=== PATIENT | male | born 1940 | race Caucasian/White ===

== ENCOUNTER 2019-08-14 11:08 | Inpatient (IN) | payer MEDICARE, BC ==
[~2019-08-14] VITALS: Ht 182.9 cm; Wt 73.9 kg
[2019-08-14] MEDS ORDERED: PRED20TA PO (11:40)
[2019-08-14] MEDS ORDERED: METF-839 PO (11:40)
[2019-08-14] MEDS ORDERED: SODIUM CHLORIDE 0.9% INJ 10 ML SYR IV PRN (12:00)
[2019-08-14 13:00] LABS: HEMATOCRIT 28.7 % (42.0-52.0); HEMOGLOBIN 9.4 g/dl (13.5-17.5); MEAN CORPUSCULAR HEMOGLOBIN 29.7 pg (27.0-33.0); MEAN CORPUSCULAR HGB CONC 32.8 g/dl (32.0-36.5); MEAN CORPUSCULAR VOLUME 90.5 fl (80.0-96.0); RED BLOOD COUNT 3.17 10^6/uL (4.30-6.10); WHITE BLOOD COUNT 5.1 10^3/uL (4.0-10.0)
[2019-08-14 13:02] LABS: PLATELET COUNT, AUTOMATED 88 10^3/uL (150-450)
[2019-08-14 13:17] LABS: ALBUMIN 2.7 GM/DL (3.2-5.2); ALT/SGPT 22 U/L (12-78); BILIRUBIN,DIRECT 0.2 MG/DL (0.0-0.2); BILIRUBIN,TOTAL 0.5 MG/DL (0.2-1.0); BLOOD UREA NITROGEN 21 MG/DL (7-18); CALCIUM LEVEL 8.9 MG/DL (8.8-10.2); CARBON DIOXIDE LEVEL 30 MEQ/L (21-32); CHLORIDE LEVEL 101 MEQ/L (98-107); CK-MB VALUE MASS < 1.0 NG/ML (<3.6); CPK CREATINE PHOSPHOKINASE 25 U/L (39-308); CREATININE FOR GFR 0.84 MG/DL (0.70-1.30); GLOMERULAR FILTRATION RATE > 60.0 (>42); GLUCOSE, FASTING 234 MG/DL (70-100); SODIUM LEVEL 137 MEQ/L (136-145); TROPONIN I 0.02 NG/ML (< 0.10)
[2019-08-14 13:36] LABS: LYMPHOCYTES 2 % (16-44); METAMYELOCYTES 15 % (0-0); MONOCYTES 1 % (0-5); MYELOCYTES 19 % (0-0); NEUTROPHILS 52 % (28-66)
[2019-08-14 13:37] LABS: DOHLE BODIES 1+
[2019-08-14 13:38] LABS: OVALOCYTES 2+; TEAR DROP CELLS 2+
[2019-08-14 13:39] LABS: PLATELET ESTIMATE DECREASED (NORMAL)
[2019-08-14 14:15] LABS: HEMOGLOBIN A1c 7.4 %
[2019-08-14] MEDS ORDERED: NS 1,000 ML IV ONE (14:45)
[2019-08-14] MEDS ORDERED: SUPER BETA PROSTATE PO (15:51)
[2019-08-14] MEDS ORDERED: ASPI81TA85 PO (15:51)
[2019-08-14] MEDS ORDERED: METF-791 PO (15:51)
[2019-08-14] MEDS ORDERED: HYALCAP PO (15:53)
[2019-08-14] MEDS ORDERED: DOCU-129 PO (15:53)
[2019-08-14] MEDS ORDERED: IRON65TA2 PO (15:53)
[2019-08-14] MEDS ORDERED: ACET-683 PO (15:53)
[2019-08-14] MEDS ORDERED: GLUCOSE 4 GM CHEW TABLET PO PRN (17:15)
[2019-08-14] MEDS ORDERED: GLUCAGON FOR INJ 1 MG VIAL (J1610) SC PRN (17:15)
[2019-08-14] MEDS ORDERED: DEXTROSE 50% 50 ML SYRINGE IV PRN (17:15)
--- NOTE | 2019-08-14 17:51 | HPE ---
DATE OF ADMISSION: 08/14/2019 at approximately 5 p.m. CHIEF COMPLAINT: Generalized weakness. HISTORY OF PRESENT ILLNESS: Mr. Daugherty is a 79-year-old gentleman who has history of non-Hodgkin lymphoma. He completed six cycles of chemotherapy approximately 4 weeks ago in June. He is originally from this area but has been living in [place], [place], since 2004. He returned to the area recently to visit family. He presents to the hospital with generalized weakness that has been going on for several days. The patient in the emergency room (ER) department was found to have respiratory panel which is positive for Coronavirus. He is not having any symptoms of congestion, cough, or shortness of breath. As a byproduct of his evaluation in the emergency department (ED), he was found to have atrial flutter, which is presently rate controlled, but he states that when he walks sometimes he feels that his heart is racing. He has no previous history of atrial flutter. His past medical history includes diet-controlled hypertension and diabetes mellitus, type 2, for which he is on metformin. ALLERGIES: Shrimp and LISINOPRIL, which cause angiotensin-converting enzyme (OK) inhibitor cough. PAST MEDICAL HISTORY: 1. Diet-controlled hypertension. 2. Diabetes. 3. Non-Hodgkin lymphoma. 4. Neutropenia associated with chemotherapy. 5. Chronic anemia associated with chemotherapy. PAST SURGICAL HISTORY: 1. Exploratory laparotomy for bowel obstruction. 2. He is status post small-bowel resection. He has an Sxqlri-H-Lepj in place. 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 He does not use any alcohol, tobacco, or illicit drugs. He currently lives in [place]. He lists himself as a DO NOT RESUSCITATE with his as his surrogate medical decision maker. FAMILY HISTORY: Notable for father, who had prostate cancer. Mother of some infection that he cannot recall. REVIEW OF SYSTEMS: Patient, other than traveler from [place] to [place], lists no other recent travel, especially to [place] or [place], where current infections are going on with Coronavirus COVID-19. He is presently afebrile. He denies having any cough or any shortness of breath. He just feels fatigued. He denies having any chest discomfort. He does have some mild lower extremity swelling, about +1 in both ankles and shins. Remainder of 12-system review with patient otherwise negative. PHYSICAL EXAMINATION: Patient's temperature is 97.2, pulse is 85 and irregularly irregular, respirations are 16, blood pressure is 135/64, oxygen saturation is 98% on room air. Telemetry shows rate controlled atrial flutter. In general, the patient is alert and oriented times three. He is an elderly gentleman who appears his stated age. He appears to have a thin build associated with protein malnutrition from his chemotherapy and cancer. He reports losing greater than 50 pounds in the last year. He has temporal muscle wasting bilaterally. His head is otherwise atraumatic. His pupils are symmetric and reactive to light. He has no scleral icterus or conjunctival pallor. Oropharynx is clear without exudate, erythema, or thrush. His neck is supple. He has no thyromegaly. No thyroid gland tenderness to palpation. He has no audible stridor. No palpable lymphadenopathy. Lung sounds are appreciated bilaterally in anterior and lateral lung valentin. No audible adventitial lungs are heard. Heart is S1, S2. No audible murmurs, rubs, or gallops. He is fairly in an irregularly irregular rhythm, consistent with atrial flutter/fibrillation noted on telemetry. His abdomen is Soft, nontender, nondistended. Extremities are without any significant cyanosis or clubbing. He has 1+ edema bilaterally. Capillary refill is less than 5 seconds. No visible rashes are noted throughout his skin. He does have some areas of bruising on his upper extremities that are in different phases of healing. Nothing appears acute at this time. RELEVANT LABORATORIES: White count is 5.1, hemoglobin 9.4, hematocrit 28.7, platelet count 88,000. Sodium 137, potassium 4, chloride 101, bicarbonate 30, anion gap 6, BUN 21, creatinine 0.81, glucose 234. A1c is 7.4. Bilirubin 0.5, AST 17, ALT 22, alkaline phosphatase 57. Initial troponin is negative. Albumin is 2.7. TSH is 1.07. EKG showed atrial flutter, rate controlled. Chest x-ray has not been completed. Urinalysis was unremarkable for any acute infection. IMPRESSION: 1. Atrial flutter, which is rate controlled, new onset. 2. Generalized weakness with dehydration. 3. Diet-controlled hypertension. 4. Diabetes mellitus, type 2, non-insulin dependent. 5. Non-Hodgkin lymphoma with anemia and thrombocytopenia associated with chemotherapy. 6. Coronavirus infection picked up on respiratory panel. PLAN: Patient will be admitted to an inpatient status to the progressive care unit (PCU). He will be monitored on telemetry. At the present time, he is not needing any rate-controlled medications. We will monitor him and decide whether he warrants medication that will control his rate. We will obtain an echocardiogram. His thyroid-stimulating hormone (TSH) level is normal, so I suspect that likely the atrial flutter may just be age induced versus related to his chemotherapy or from the dehydration and acute infection with the Coronavirus itself. Patient will be gently hydrated. We will repeat his labs i the morning. We will assess his left ventricular (LV) function with an echocardiogram in the morning and will decide on anticoagulation based on his CHADs2 score and repeat labs. At present moment, patient is thrombocytopenic and is a month out from his most recent chemotherapy. We will make sure his platelets are stable before starting any anticoagulation. Patient will be placed on sliding scale for treatment of his diabetes. Because he is not eating well, I am just going to put him on a regular diet. We will have utilization review coordinator also see him, as he has had considerable weight loss associated with this moderate to severe protein calorie malnutrition. Patient will be placed in respiratory isolation given his positive respiratory viral panel. Further recommendations to follow. Patient will be a DO NOT RESUSCITATE. Due to his thrombocytopenia he is not a candidate for chemo prophylaxis. He will be placed on sequential compression devices (SCDs) only.
[2019-08-14] MEDS: HumaLOG INSULIN (NovoLOG) PER UNIT SC SCH (17:58)
[2019-08-14] MEDS: LR 1,000 ML IV SCH (17:59)
[2019-08-14 18:31] LABS: CK-MB VALUE MASS < 1.0 NG/ML (<3.6); CPK CREATINE PHOSPHOKINASE 21 U/L (39-308); MB/CK RELATIVE INDEX 4.76 (< OR =4); TROPONIN I 0.02 NG/ML (< 0.10)
[2019-08-14] MEDS: ACETAMINOPHEN TAB 650MG DOSE (2X325MG) PO PRN (19:45)
[2019-08-14] MEDS ORDERED: HumaLOG INSULIN (NovoLOG) PER UNIT SC SCH (21:00)
--- NOTE | 2019-08-14 22:09 | IPNPDOC ---
Text Note Date of Service The patient was seen on 08/14/19. NOTE time of service 1005pm The pt is c/o of tail bone pain. He has some redness on his gluteal area. # Sacral Pressure Ulcer - will order air matress and ask RN to help w frequent repositioning. VS,Fishbone, I+O VS, Fishbone, I+O Laboratory Tests 08/14/19 12:31 Vital Signs Date Time Temp Pulse Resp B/P (MAP) Pulse Ox O2 Delivery O2 Flow Rate FiO2 08/14/19 21:49 107 96 08/14/19 21:34 17 Room Air 08/14/19 19:29 156/69 (98) 08/14/19 16:49 97.2 PB STEELE MD Aug 14, 2019 22:09
--- NOTE | 2019-08-14 23:10 | ECGEPIP ---
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
[2019-08-15] MEDS: BENZONATATE 100 MG CAP PO SCH ×2 (00:21→08:00)
[2019-08-15 02:02] LABS: CK-MB VALUE MASS < 1.0 NG/ML (<3.6); CPK CREATINE PHOSPHOKINASE 20 U/L (39-308); TROPONIN I 0.04 NG/ML (< 0.10)
[2019-08-15] MEDS ORDERED: BENZONATATE 100 MG CAP PO PRN (05:45)
[2019-08-15] MEDS: LR 1,000 ML IV SCH (05:57)
[2019-08-15 06:00] VITALS: BP 124/68
[2019-08-15 06:17] LABS: ALBUMIN 2.5 GM/DL (3.2-5.2); ALT/SGPT 20 U/L (12-78); BILIRUBIN,TOTAL 0.5 MG/DL (0.2-1.0); BLOOD UREA NITROGEN 14 MG/DL (7-18); CALCIUM LEVEL 8.3 MG/DL (8.8-10.2); CARBON DIOXIDE LEVEL 29 MEQ/L (21-32); CHLORIDE LEVEL 102 MEQ/L (98-107); CREATININE FOR GFR 0.83 MG/DL (0.70-1.30); GLOMERULAR FILTRATION RATE > 60.0 (>42); GLUCOSE, FASTING 204 MG/DL (70-100); POTASSIUM SERUM 3.8 MEQ/L (3.5-5.1); SODIUM LEVEL 137 MEQ/L (136-145); TOTAL PROTEIN 4.9 GM/DL (6.4-8.2)
[2019-08-15] MEDS: ACETAMINOPHEN TAB 650MG DOSE (2X325MG) PO PRN (07:37)
[2019-08-15 08:00] VITALS: BP 116/56
[2019-08-15 08:58] LABS: HEMATOCRIT 26.2 % (42.0-52.0); HEMOGLOBIN 8.4 g/dl (13.5-17.5); MEAN CORPUSCULAR HEMOGLOBIN 29.2 pg (27.0-33.0); MEAN CORPUSCULAR HGB CONC 32.1 g/dl (32.0-36.5); RED BLOOD COUNT 2.88 10^6/uL (4.30-6.10); WHITE BLOOD COUNT 2.7 10^3/uL (4.0-10.0)
[2019-08-15 08:59] LABS: PLATELET COUNT, AUTOMATED 76 10^3/uL (150-450)
[2019-08-15] MEDS: HumaLOG INSULIN (NovoLOG) PER UNIT SC SCH ×2 (09:03→12:56)
[2019-08-15 09:23] LABS: ATYPICAL LYMPH 1 % (0-5); LYMPHOCYTES 2 % (16-44); METAMYELOCYTES 11 % (0-0); MYELOCYTES 15 % (0-0); NEUTROPHILS 54 % (28-66)
[2019-08-15 09:24] LABS: ANISOCYTOSIS 2+; OVALOCYTES 1+; PLATELET ESTIMATE DECREASED (NORMAL); TEAR DROP CELLS 1+
[2019-08-15 09:35] LABS: CK-MB VALUE MASS < 1.0 NG/ML (<3.6); CPK CREATINE PHOSPHOKINASE 16 U/L (39-308); MB/CK RELATIVE INDEX 6.25 (< OR =4); TROPONIN I 0.03 NG/ML (< 0.10)
[2019-08-15 12:00] VITALS: BP 127/59
[2019-08-15] MEDS ORDERED: traMADol 50 MG TAB PO PRN (13:00)
[2019-08-15] MEDS ORDERED: ELIQ5TAB PO (14:33)
--- NOTE | 2019-08-15 14:38 | IPNPDOC ---
Subjective Date Seen The patient was seen on 08/15/19. Subjective Chief Complaint/HPI Feels better this morning. Walked the halls w/o any associated RVR. Echo completed this am, but results are not available. cough. Objective Physical Examination General Exam: Positive: Alert, No Acute Distress Eye Exam: Negative: Sclera icteric ENT Exam: Positive: Atraumatic, Mucous membr. moist/pink Neck Exam: Positive: Supple Chest Exam: Positive: Clear to auscultation Telemetry: Positive: Other Telemetry: (a flutter rate controlled) Abdomen Exam: Positive: Normal bowel sounds Extremity Exam: Positive: Clubbing; Negative: Cyanosis, Edema Neuro Exam: Positive: Normal Gait Assessment /Plan Assessment 1. Atrial flutter, which is rate controlled, new onset. 2. Generalized weakness with dehydration. 3. Diet-controlled hypertension. 4. Diabetes mellitus, type 2, non-insulin dependent. 5. Non-Hodgkin lymphoma with anemia and thrombocytopenia associated with chemotherapy. 6. Upper respiratory infection with Coronavirus (usual strains) Plan: - eliquis 5 mg bid - I will notify him of results of ECHO when the results are back - F/u with PCP + Oncologist in 1 week Plan/VTE VTE Prophylaxis Ordered?: No VTE Exclusion Mechanical Proph: N/A:VTE Prophy Ordered VTE Exclusion Pharmacological: Thrombocytopenia VS, I&O, 24H, Fishbone Vital Signs/I&O Vital Signs Date Time Temp Pulse Resp B/P (MAP) Pulse Ox O2 Delivery O2 Flow Rate FiO2 08/15/19 12:00 97.4 85 18 127/59 (81) 97 Room Air I&O- Last 24 Hours up to 6 AM 08/15/19 06:00 Intake Total 1800 ml Output Total 0 ml Balance 1800 ml Laboratory Data 24H LABS Laboratory Tests 2 08/14/19 17:53: Bedside Glucose (Misc Panel) 128H 08/14/19 17:56: Total Creatine Kinase 21L, Creatine Kinase MB < 1.0, Creatine Kinase MB Relative Index 4.76H, Troponin I 0.02 08/14/19 21:00: Bedside Glucose (Misc Panel) 234H 08/15/19 00:55: Total Creatine Kinase 20L, Creatine Kinase MB < 1.0, Creatine Kinase MB Relative Index 5.00H, Troponin I 0.04# 08/15/19 05:28: Anion Gap 6L, Glomerular Filtration Rate > 60.0, Calcium Level 8.3L, Total Bilirubin 0.5, Aspartate Amino Transf (AST/SGOT) 12, Alanine Aminotransferase (ALT/SGPT) 20, Alkaline Phosphatase 57, Total Protein 4.9L, Albumin 2.5L, Albumin/Globulin Ratio 1.04 08/15/19 08:36: Immature Granulocyte % (Auto) , Neutrophils (%) (Auto) , Lymphocytes # (Auto) , Nucleated Red Blood Cells % (auto) 0.0, Neutrophils 54, Band Neutrophils 17H, Lymphocytes (Manual) 2L, Metamyelocytes 11H, Myelocytes 15H, Atypical Lymphocytes 1, Anisocytosis 2+, Tear Drop Cells 1+, Ovalocytes 1+, Platelet Estimate DECREASED, Total Creatine Kinase 16L, Creatine Kinase MB < 1.0, Creatine Kinase MB Relative Index 6.25H, Troponin I 0.03# 08/15/19 12:40: Bedside Glucose (Misc Panel) 246H CBC/BMP Laboratory Tests 08/15/19 05:28 08/15/19 08:36 Microbiology Microbiology 08/14/19 Respiratory Virus Panel (PCR) ([facility]) - Final, Complete Coronavirus Hku1 Coronavirus [id number] PARUL LORD MD Aug 15, 2019 14:38
[2019-08-15] MEDS ORDERED: TRAM50TA2 PO (17:43)
--- NOTE | 2019-08-15 21:36 | ECHO ---
DATE OF PROCEDURE: 08/15/2019 Date of : 1940 Age: 79 REFERRING PHYSICIAN: Dr. Andrey Matos REASON FOR ECHOCARDIOGRAM: Dysrhythmia. 2D MEASUREMENTS: IVS: 0.8 cm LV: 4.5 cm LVPW: 1.0 cm LA: 3.8 cm Aorta: 3.1 cm RV: 2.8 cm DOPPLER MEASUREMENTS: Mitral E: 0.7, Mitral A: 0.5 with a ratio of 1.5 Maximum tricuspid valve velocity: 2.4 m/s 2D COMMENTS: 1. Technically limited study due to poor acoustic window. 2. The left ventricular size is normal as well as the left ventricular wall thickness. Left ventricular systolic function also is normal, estimated at 55-60%. 3. Subjectively, the left atrium appeared to be mildly enlarged. Normal right atrium and right ventricle. 4. The atrial septum appeared to be normal without evidence of defect or shunt. 5. Normal aortic root. 6. No pericardial effusion seen. 7. Mildly calcified aortic valve with normal leaflet excursion. Mildly calcified mitral annulus with normal anterior mitral valve leaflet motion. Normal tricuspid valve and pulmonic valve. The proximal pulmonary artery branches were not well visualized. 8. The inferior vena cava was not visualized. DOPPLER: Doppler detects mild to moderate aortic regurgitation, mild mitral regurgitation, and trace tricuspid regurgitation. The calculated pulmonary artery systolic pressure is about 30 mmHg. Assessment of the left ventricular diastolic function was limited but appeared to be normal. IMPRESSION 1. Normal global left ventricular systolic and diastolic function. 2. Aortic valve sclerosis with [id number] aortic regurgitation. 3. Mitral annulus calcification with mild mitral regurgitation. Subjectively, the left atrium appeared to be mildly enlarged. 4. Trace tricuspid regurgitation. 5. The study was technically limited due to poor acoustic window. [facility]
[2019-08-16] MEDS ORDERED: TRAM50TA2 PO (15:10)
[2019-08-16] MEDS ORDERED: ELIQ5TAB PO (15:10)
--- NOTE | 2019-08-17 21:02 | DSES ---
DATE OF ADMISSION: 08/14/2019 DATE OF DISCHARGE: 08/15/2019 DISCHARGE DIAGNOSES: 1. Atrial flutter, rate controlled, this is of new onset. 2. Generalized weakness secondary to dehydration. 3. Diet controlled hypertension. 4. Non-insulin dependent diabetes mellitus type 2. 5. Non-Hodgkin lymphoma with pancytopenia associated with chemotherapy. 6. Upper respiratory infection with coronavirus routine strains. PROCEDURES PERFORMED: During this hospitalization: None. CONSULTATIONS: On this case: None. DISPOSITION: Patient is being discharged home in stable condition. FOLLOWUP LABORATORIES: None. DISCHARGE INSTRUCTIONS: Patient was instructed to take Eliquis 5 mg twice a day. He is to monitor for any blood in his stool, urine, hematemesis, or evidence of easy bruising. He is to followup with his primary care provider (PCP) as well as oncologist upon return to [place] where he lives. CONDITION ON DISCHARGE: Improved from admission. RELEVANT LABORATORIES: Are the following: White blood cell count on admission was 5.1, had decreased to 2.7, hemoglobin 8.4, hematocrit 26.2, platelet counts are 88,000. Sodium 137, potassium 3.8, chloride 102, bicarbonate 29, BUN 14, creatinine 0.83, glucose 204, hemoglobin A1c 7.4, AST 12, ALT 20, alkaline phosphatase 57, troponin markers times three were normal, TSH 1.07. Urinalysis was otherwise unremarkable showing 2+ glucose and trace ketonuria. Respiratory viral panel was positive for coronavirus HKU1 and NL63. IMAGING STUDIES: Obtained during the patient's hospital stay was a CT scan of his head which was unremarkable for any acute pathology and a chest x-ray which showed no acute pulmonary disease. DISCHARGE MEDICATIONS: Are the following: - Tylenol 1000 mg every 6 hours as needed for pain - ferrous sulfate 325 mg daily - hyaluronic acid three capsules daily - metformin 500 mg by mouth daily - prednisone 20 mg daily as needed - Colace 200 mg twice a day as needed for constipation - Eliquis 5 mg by mouth twice a day - tramadol 50 mg by mouth every 6 hours as needed for pain HOSPITAL COURSE: Mr. Daugherty is a 79-year-old gentleman who had presented to the hospital with generalized weakness. He was found to be in atrial flutter which was a new diagnosis for him with heart rates in the low 100s, in addition he was found to be dehydrated. He was admitted to the hospitalist service, hydrated with IV fluids with improvement in his dehydration. His atrial flutter settled down and he did not necessitate any rate controlling medications. On the following day, the patient was seen by physical therapy (PT), he was up and walking in the halls without difficulty, he was not complaining of any weakness and stated that he felt quite well. He was eager to be discharged. An echocardiogram obtained during this hospitalization showed a normal left ventricular ejection fraction without any significant valvular pathology. The patient was started on Eliquis 5 mg twice a day and also prescribed tramadol and discharged home in stable condition. A total of 30 minutes was spent completing all discharge paperwork.
== END 2019-08-15 15:43 | disposition home or self-care (01) | DRG 308 ==
LOC: M ED 11:08 → M ED INP 17:03 → ENRESERV 08-15 04:22 → M PCU 08-15 04:50
PROVIDERS: ADMIT Internal Medicine; ATTEND Internal Medicine
DX: I48.92 Unspecified atrial flutter (principal); D61.810 Antineoplastic chemotherapy induced pancytopenia; E43 Unspecified severe protein-calorie malnutrition; Z92.21 Personal history of antineoplastic chemotherapy; I10 Essential (primary) hypertension; E11.9 Type 2 diabetes mellitus without complications; Z79.84 Long term (current) use of oral hypoglycemic drugs; Z91.013 Allergy to seafood; Z88.8 Allergy status to other drugs, medicaments and biological substances; Z66 Do not resuscitate; E86.0 Dehydration; B97.29 Other coronavirus as the cause of diseases classified elsewhere; R53.1 Weakness; Z85.72 Personal history of non-Hodgkin lymphomas; L89.159 Pressure ulcer of sacral region, unspecified stage; Z79.899 Other long term (current) drug therapy

== ENCOUNTER 2019-08-16 11:26 | Inpatient (IN) | payer MEDICARE, BC ==
[~2019-08-16] VITALS: Ht 188 cm; Wt 74.7 kg
[~2019-08-16 11:26] MED LIST: ACET-683 PO; ASPI81TA85 PO; DOCU-129 PO; ELIQ5TAB PO; HYALCAP PO; IRON65TA2 PO; METF-791 PO; METF-839 PO; PRED20TA PO; SODIUM CHLORIDE 0.9% INJ 10 ML SYR IV SCH; SUPER BETA PROSTATE PO; TRAM50TA2 PO
[2019-08-16 13:16] LABS: VENOUS BASE EXCESS 3.2 (-2.0-2.0); VENOUS O2 SATURATION 84.1 % (60.0-80.0); VENOUS PARTIAL PRESSURE CO2 38.1 mmHg (38.0-50.0); VENOUS PARTIAL PRESSURE O2 49.5 mmHg (30.0-50.0); VENOUS PH 7.469 UNITS (7.330-7.430); VENOUS STANDARD HCO3 27.1 MEQ/L; VENOUS TOTAL CO2 28.2 MEQ/L (24.0-28.0)
[2019-08-16 13:21] LABS: HEMATOCRIT 27.8 % (42.0-52.0); HEMOGLOBIN 8.9 g/dl (13.5-17.5); MEAN CORPUSCULAR HEMOGLOBIN 29.1 pg (27.0-33.0); MEAN CORPUSCULAR VOLUME 90.8 fl (80.0-96.0); RED BLOOD COUNT 3.06 10^6/uL (4.30-6.10)
[2019-08-16 13:22] LABS: PLATELET COUNT, AUTOMATED 88 10^3/uL (150-450); WHITE BLOOD COUNT 1.4 10^3/uL (4.0-10.0)
[2019-08-16 13:51] LABS: EOSINOPHILS 1 % (0-3); LYMPHOCYTES 1 % (16-44); METAMYELOCYTES 4 % (0-0); MONOCYTES 4 % (0-5); NEUTROPHILS 73 % (28-66); PLATELET ESTIMATE DECREASED (NORMAL)
[2019-08-16 13:52] LABS: OVALOCYTES 1+; POIKILOCYTOSIS 1+
--- NOTE | 2019-08-16 13:53 | REP ---
CT BRAIN WITHOUT IV CONTRAST: CT brain performed without IV contrast. Coronal reconstruction images are performed. There is moderate atrophy. There is no midline shift or mass effect. Minor periventricular small vessel ischemic changes are present. There is no intracranial hemorrhage or extra-axial fluid collection. There are minor vascular calcifications in the carotid siphons. There is mild mucosal thickening in the posterior left maxillary sinus and posterior right sphenoid sinus. IMPRESSION: Atrophy. No acute intracranial finding. Mild mucosal thickening left maxillary and right sphenoid sinuses. Electronically Signed by Brain Barriga MD 08/16/2019 06:49 P
--- NOTE | 2019-08-16 13:54 | REP ---
CHEST, AP: AP sitting views of the chest are performed. There appears to be some mild fibroatelectasis in the left base with no acute infiltrate. There is mild elevation of the left hemidiaphragm. The heart is normal in size. Mediastinal silhouette is unremarkable. Right central venous catheter is seen with the tip in the right atrium. There are mild degenerative changes of the spine. IMPRESSION: No evidence of acute pulmonary disease. Electronically Signed by Brain Barriga MD 08/16/2019 06:49 P
[2019-08-16 14:15] LABS: ALBUMIN 2.5 GM/DL (3.2-5.2); ALT/SGPT 23 U/L (12-78); BILIRUBIN,DIRECT 0.2 MG/DL (0.0-0.2); BILIRUBIN,TOTAL 0.5 MG/DL (0.2-1.0); BLOOD UREA NITROGEN 16 MG/DL (7-18); CALCIUM LEVEL 8.3 MG/DL (8.8-10.2); CARBON DIOXIDE LEVEL 27 MEQ/L (21-32); CHLORIDE LEVEL 101 MEQ/L (98-107); CK-MB VALUE MASS < 1.0 NG/ML (<3.6); CPK CREATINE PHOSPHOKINASE 18 U/L (39-308); CREATININE FOR GFR 0.88 MG/DL (0.70-1.30); GLOMERULAR FILTRATION RATE > 60.0 (>42); GLUCOSE, FASTING 251 MG/DL (70-100); MB/CK RELATIVE INDEX 5.56 (< OR =4); POTASSIUM SERUM 4.1 MEQ/L (3.5-5.1); SODIUM LEVEL 135 MEQ/L (136-145); TROPONIN I 0.04 NG/ML (< 0.10)
[2019-08-16] MEDS ORDERED: TRAM50TA2 PO (15:10)
[2019-08-16] MEDS ORDERED: ELIQ5TAB PO (15:10)
[2019-08-16] MEDS ORDERED: guaiFENesin/CODEINE SYRUP 5 ML UDC PO PRN (15:15)
[2019-08-16 17:05] VITALS: BP 130/62
[2019-08-16] MEDS: FERROUS SULFATE 325MG TAB PO SCH (17:51)
[2019-08-16] MEDS: metFORMIN XR 500MG TAB *GLUCOPHAGE XR PO SCH (17:51)
[2019-08-16] MEDS: FILGRASTIM 480 MCG/0.8 ML SYRINGE (J1442) SC SCH (17:51)
[2019-08-16 20:00] VITALS: BP 129/61
[2019-08-16] MEDS: APIXABAN 5 MG TAB (ELIQUIS) PO SCH (20:12)
[2019-08-16] MEDS: traMADol 50 MG TAB PO PRN (20:14)
[2019-08-17] VITALS: BP 154/71
[2019-08-17 05:16] LABS: HEMATOCRIT 26.9 % (42.0-52.0); HEMOGLOBIN 8.5 g/dl (13.5-17.5); MEAN CORPUSCULAR HEMOGLOBIN 28.8 pg (27.0-33.0); MEAN CORPUSCULAR HGB CONC 31.6 g/dl (32.0-36.5); MEAN CORPUSCULAR VOLUME 91.2 fl (80.0-96.0); RED BLOOD COUNT 2.95 10^6/uL (4.30-6.10)
[2019-08-17 05:36] LABS: ALBUMIN 2.2 GM/DL (3.2-5.2); ALT/SGPT 20 U/L (12-78); BILIRUBIN,TOTAL 0.4 MG/DL (0.2-1.0); BLOOD UREA NITROGEN 14 MG/DL (7-18); CALCIUM LEVEL 8.5 MG/DL (8.8-10.2); CARBON DIOXIDE LEVEL 27 MEQ/L (21-32); CHLORIDE LEVEL 101 MEQ/L (98-107); CREATININE FOR GFR 0.86 MG/DL (0.70-1.30); GLOMERULAR FILTRATION RATE > 60.0 (>42); GLUCOSE, FASTING 169 MG/DL (70-100); POTASSIUM SERUM 3.9 MEQ/L (3.5-5.1); SODIUM LEVEL 134 MEQ/L (136-145); TOTAL PROTEIN 5.2 GM/DL (6.4-8.2)
[2019-08-17 05:37] LABS: PLATELET COUNT, AUTOMATED 87 10^3/uL (150-450); WHITE BLOOD COUNT 1.6 10^3/uL (4.0-10.0)
[2019-08-17 07:43] VITALS: BP 141/73
[2019-08-17] MEDS: FILGRASTIM 480 MCG/0.8 ML SYRINGE (J1442) SC SCH (08:14)
[2019-08-17] MEDS: metFORMIN XR 500MG TAB *GLUCOPHAGE XR PO SCH ×2 (08:14→17:38)
[2019-08-17] MEDS: APIXABAN 5 MG TAB (ELIQUIS) PO SCH ×2 (08:14→20:17)
[2019-08-17] MEDS: FERROUS SULFATE 325MG TAB PO SCH (08:14)
[2019-08-17 11:32] VITALS: BP 124/55
--- NOTE | 2019-08-17 12:02 | HPE ---
DATE OF ADMISSION: 08/16/2019 TIME: 3:50 p.m. CHIEF COMPLAINT: Weakness. HISTORY OF PRESENT ILLNESS: Mr. Daugherty is a 79-year-old gentleman who was discharged yesterday from this hospital after presenting with dehydration and findings of new onset atrial flutter. He had subsequently been discharged home in stable condition yesterday. While at home, the patient reports that he was coughing, he was also diagnosed as having routine coronavirus upper respiratory tract infection during his stay here and was managed supportively. He went home, continued to cough throughout the night and felt quite weak and subsequently sought medical attention today in the emergency department where he was found to have a white blood cell count of 1.4, which is lower from 2.6 white blood cell count yesterday. For this reason, he is going to be admitted to the hospitalist service for supportive care. He has a history of non-Hodgkin's lymphoma and has been receiving chemotherapy. His last chemotherapy was approximately one month ago. During that time he had received Neulasta therapy. His blood counts and platelet counts are otherwise stable. He reports that he took two doses of the Eliquis without complications. ALLERGIES: 1. Shrimp. 2. LISINOPRIL. PAST MEDICAL HISTORY: Notable for: 1. Recently diagnosed atrial flutter. He is on chronic anticoagulation with Eliquis starting yesterday. 2. Diet controlled hypertension. 3. Diabetes mellitus type 2, noninsulin dependent. 4. History of non-Hodgkin lymphoma current on chemotherapy. 5. He has pancytopenia induced chemotherapy. 6. Chronic anemia associated with chemotherapy. PAST SURGICAL HISTORY: Notable for: 1. Exploratory laparotomy for bowel obstruction. 2. He has an Infusaport. 3. He has had a bowel resection. SOCIAL HISTORY: The patient currently resides in [place]. 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 He does not use any alcohol, illicit drugs or tobacco products. He is and lives with . His would be his surrogate medical decision maker. He is a do not intubate, DO NOT RESUSCITATE. FAMILY HISTORY: Notable for prostate cancer in his dad. REVIEW OF SYSTEMS: Positive for a nonproductive cough and generalized weakness. Otherwise, he denies having any earaches, sore throat, no diarrhea, no burning or itching with urination. No skin rashes or tenderness of his limbs. PHYSICAL EXAMINATION: His temperature is 99, pulse is 110. He is currently in a sinus rhythm. Respiratory rate is 17, blood pressure is 119/58, oxygen saturation is 96% on room air. General: The patient is alert and oriented times three. He appears to be weak. He does not appear acutely ill. His head is atraumatic, alopecia. Skin is warm to touch, no visible rash. Tympanic membranes are visualized bilaterally without any visible infection. Nares are patent bilaterally without any visible discharge. Oropharynx is clear, without exudate, erythema, or thrush. Oral mucosa is moist. Neck is supple. No palpable lymphadenopathy. No thyromegaly. Lung sounds are appreciated bilaterally. He has symmetric chest wall rise. No audible rales, wheeze or rhonchi. Heart is S1, S2. No audible murmurs, rubs, or gallops. Abdomen is soft, nontender, nondistended with active bowel sounds. Extremities without any cyanosis, clubbing or edema. RELEVANT LABORATORIES: White blood cell count is 1.4 with 70% neutrophils and 17% bands. His absolute ANC when calculated is around 1200. Platelet count 88,000, which is improved from yesterday and his hemoglobin was 8.9 with hematocrit 27.8. Sodium 135, potassium 4.1, chloride 101, bicarbonate 27, BUN 16, creatinine 0.88, GFR greater than 60, glucose 251, calcium is 8.3, bilirubin 0.4, AST is 14, ALT is 23, alkaline phosphatase is 59. CPK is 18. Troponin marker is 0.04. TSH is 0.87, lactic acid 1.8. Chest x-ray done in the emergency department does not show any acute infiltrates. CT scan of the head without contrast shows no acute intracranial event. HOME MEDICATIONS: Are the following: - Tylenol 1000 mg every 6 hours as needed - apixaban 5 mg twice a day - Colace 200 mg twice a day as needed for constipation - ferrous sulfate 325 mg daily - hyaluronic acid 3 capsules daily - metformin 500 mg twice a day - tramadol 50 mg every 6 hours as needed for pain - super beta prostate 1 capsule twice a day - prednisone 20 mg daily as needed for pain IMPRESSION: 1. Chemo induced pancytopenia likely causing generalized weakness. 2. Paroxysmal atrial flutter likely brought on by acute infection and dehydration from previous hospital stay. The patient is currently in sinus rhythm. 3. Chronic anticoagulation with Eliquis therapy. 4. History of non-Hodgkin's lymphoma currently on chemotherapy, last dose approximately one month ago. 5. Cvj-lmdtyem-otinfwwam diabetes mellitus type 2. 6. Moderate protein calorie malnutrition secondary to chemo and underlying lymphoma. PLAN: Patient will be admitted to an inpatient status. He will be placed on the general medical floor with telemetry. He will be continued on his Eliquis as it looks like he is tolerating this quite well. The patient will be given a dose of Neupogen and we will recheck his white blood cell count in the morning. At this point in time, there is no indication to start any antibiotics as it does not appear that he is neutropenic with ANC count of greater than 1200. The patient will be treated supportively. Will check a cortisol level just to rule out any adrenal insufficiency that is contributing to his generalized weakness given his recent chronic use of steroids as an outpatient. He is otherwise normotensive now and nothing to indicate any acute adrenal insufficiency. The patient has had blood cultures drawn in the emergency department and the results are pending at this time. He will be a DO NOT RESUSCITATE, do not intubate. He will be on Eliquis for deep vein thrombosis (DVT) prophylaxis.
--- NOTE | 2019-08-17 12:12 | IPNPDOC ---
Subjective Date Seen The patient was seen on 08/17/19. Subjective Chief Complaint/HPI c/o constipation. No new complaints. Still feels weak. Continues to have cough. Objective Physical Examination General Exam: Positive: Alert, Cooperative, No Acute Distress; Negative: Mild Distress Eye Exam: Negative: Sclera icteric Neck Exam: Positive: Supple Chest Exam: Positive: Clear to auscultation Abdomen Exam: Positive: Normal bowel sounds Extremity Exam: Negative: Edema Skin Exam: Positive: Nl turgor and temperature; Negative: Rash Psych Exam: Positive: Mental status NL, Mood NL Assessment /Plan Assessment # Generalized weakness # Pancytopenia due to chemo # [place] virus URI # Atrial flutter Plan: - continue neupogen until ANC around 5000 - if no improvement with neupogen then will consult oncology, and consider BM bx - continue eliquis (hgb + platelets stable) - robitussin ac prn for cough Plan/VTE VTE Prophylaxis Ordered?: No (eliquis) VTE Exclusion Mechanical Proph: Other VTE Exclusion Pharmacological: Other VS, I&O, 24H, Fishbone Vital Signs/I&O Vital Signs Date Time Temp Pulse Resp B/P (MAP) Pulse Ox O2 Delivery O2 Flow Rate FiO2 08/17/19 11:32 97.2 105 18 124/55 (78) 96 Room Air I&O- Last 24 Hours up to 6 AM 08/17/19 06:00 Intake Total 1290 ml Output Total 550 ml Balance 740 ml Laboratory Data 24H LABS Laboratory Tests 2 08/16/19 12:28: Bedside Glucose (Misc Panel) 223H 08/16/19 12:59: Blood Gas Bicarbonate Standard 27.1, Venous Blood pH 7.469H, Venous Blood Partial Pressure CO2 38.1, Venous Blood Partial Pressure O2 49.5, Venous Blood Total Carbon Dioxide 28.2H, Venous Blood HCO3 27.0, Venous Blood Oxygen Saturation 84.1H, Venous Blood Base Excess 3.2H, Anion Gap 7L, Glomerular Filtration Rate > 60.0, Lactic Acid Level 1.8, Calcium Level 8.3L, Total Bilirubin 0.5, Direct Bilirubin 0.2, Aspartate Amino Transf (AST/SGOT) 14, Alanine Aminotransferase (ALT/SGPT) 23, Alkaline Phosphatase 59, Ammonia < 10, Total Creatine Kinase 18L, Creatine Kinase MB < 1.0, Creatine Kinase MB Relative Index 5.56H, Troponin I 0.04#, Total Protein 5.0L, Albumin 2.5L, Albumin/Globulin Ratio 1.00, Thyroid Stimulating Hormone (TSH) 0.870 08/16/19 13:00: Immature Granulocyte % (Auto) , Neutrophils (%) (Auto) , Lymphocytes # (Auto) , Nucleated Red Blood Cells % (auto) 0.0, Neutrophils 73H, Band Neutrophils 17H, Lymphocytes (Manual) 1L, Monocytes (Manual) 4, Eosinophils (Manual) 1, Metamyelocytes 4H, Poikilocytosis 1+, Ovalocytes 1+, Platelet Estimate DECREASED, Immature Platelet Fraction 4.8 08/17/19 04:49: Anion Gap 6L, Glomerular Filtration Rate > 60.0, Calcium Level 8.5L, Total Bilirubin 0.4, Aspartate Amino Transf (AST/SGOT) 16, Alanine Aminotransferase (ALT/SGPT) 20, Alkaline Phosphatase 57, Total Protein 5.2L, Albumin 2.2L, Albumin/Globulin Ratio 0.73L, Nucleated Red Blood Cells % (auto) 0.0 CBC/BMP Laboratory Tests 08/16/19 12:59 08/16/19 13:00 08/17/19 04:49 Microbiology Microbiology 08/16/19 Blood Culture, Received Pending 08/16/19 Blood Culture, Received Pending PARUL LORD MD Aug 17, 2019 12:12
[2019-08-17 15:21] VITALS: BP 121/66
[2019-08-17 15:29] VITALS: BP 121/66
--- NOTE | 2019-08-17 20:21 | ECGEPIP ---
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
[2019-08-17] MEDS: DOCUSATE SODIUM 100 MG CAP PO PRN (20:28)
[2019-08-17 22:00] VITALS: BP 148/68
[2019-08-17] MEDS: traMADol 50 MG TAB PO PRN (23:33)
[2019-08-18 02:00] VITALS: BP 145/70
[2019-08-18 06:00] VITALS: BP 143/71
[2019-08-18 08:18] LABS: HEMATOCRIT 25.3 % (42.0-52.0); HEMOGLOBIN 8.3 g/dl (13.5-17.5); MEAN CORPUSCULAR HEMOGLOBIN 29.4 pg (27.0-33.0); MEAN CORPUSCULAR HGB CONC 32.8 g/dl (32.0-36.5); MEAN CORPUSCULAR VOLUME 89.7 fl (80.0-96.0); PLATELET COUNT, AUTOMATED 102 10^3/uL (150-450); RED BLOOD COUNT 2.82 10^6/uL (4.30-6.10)
[2019-08-18 08:25] LABS: WHITE BLOOD COUNT 1.3 10^3/uL (4.0-10.0)
[2019-08-18 10:00] VITALS: BP 119/67
[2019-08-18] MEDS: metFORMIN XR 500MG TAB *GLUCOPHAGE XR PO SCH (10:01)
[2019-08-18] MEDS: APIXABAN 5 MG TAB (ELIQUIS) PO SCH ×2 (10:02→20:28)
[2019-08-18] MEDS: FILGRASTIM 480 MCG/0.8 ML SYRINGE (J1442) SC SCH (10:02)
[2019-08-18] MEDS: FERROUS SULFATE 325MG TAB PO SCH (10:02)
[2019-08-18] MEDS: DOCUSATE SODIUM 100 MG CAP PO PRN (10:03)
[2019-08-18 10:29] LABS: ATYPICAL LYMPH 1 % (0-5); EOSINOPHILS 2 % (0-3); LYMPHOCYTES 19 % (16-44); METAMYELOCYTES 12 % (0-0); MONOCYTES 4 % (0-5); MYELOCYTES 26 % (0-0); NEUTROPHILS 32 % (28-66); PLATELET ESTIMATE DECREASED (NORMAL); TOXIC GRANULATION 2+
[2019-08-18 10:30] LABS: ANISOCYTOSIS 1+; MICROCYTOSIS 1+
--- NOTE | 2019-08-18 11:20 | IPNPDOC ---
Subjective Date Seen The patient was seen on 08/18/19. Subjective Chief Complaint/HPI non-productive cough. No sob, low-grade temp this morning at 6 am. No other complaints. Objective Physical Examination General Exam: Positive: Alert, Cooperative, No Acute Distress; Negative: Mild Distress Eye Exam: Negative: Sclera icteric Neck Exam: Positive: Supple Chest Exam: Positive: Clear to auscultation; Negative: Rales, Rhonchi, Wheezing Abdomen Exam: Positive: Normal bowel sounds Extremity Exam: Negative: Edema Skin Exam: Positive: Nl turgor and temperature; Negative: Rash Psych Exam: Positive: Mental status NL, Mood NL Assessment /Plan Assessment # Generalized weakness # Pancytopenia due to chemo # Febrile neutropenia (ANC 468) # Saldivar virus URI # Atrial flutter - currently nsr Plan: - d/w Dr. Crespo, continue Neupogen (day#3) until ANC > 1500 - start vanco + cefepime - ID consult - neutropenic precautions - neutropenic diet - continue supportive care - repeat blood cultures (draw from port) Plan/VTE VTE Prophylaxis Ordered?: No (eliquis) VTE Exclusion Mechanical Proph: Other VTE Exclusion Pharmacological: Other VS, I&O, 24H, Fishbone Vital Signs/I&O Vital Signs Date Time Temp Pulse Resp B/P (MAP) Pulse Ox O2 Delivery O2 Flow Rate FiO2 08/18/19 10:00 98.1 101 19 119/67 (84) 93 Room Air I&O- Last 24 Hours up to 6 AM 08/18/19 05:59 Intake Total 840 ml Output Total 225 ml Balance 615 ml Laboratory Data 24H LABS Laboratory Tests 2 08/18/19 07:58: Immature Granulocyte % (Auto) , Neutrophils (%) (Auto) , Neutrophils # (Auto) , Lymphocytes # (Auto) , Nucleated Red Blood Cells % (auto) 0.0, Neutrophils 32, Band Neutrophils 4, Lymphocytes (Manual) 19, Monocytes (Manual) 4, Eosinophils (Manual) 2, Metamyelocytes 12H, Myelocytes 26H, Atypical Lymphocytes 1, Anisocytosis 1+, Microcytosis 1+, Toxic Granulation 2+, Platelet Estimate DECRE ASED CBC/BMP Laboratory Tests 08/18/19 07:58 Microbiology Microbiology 08/16/19 Blood Culture - Preliminary, Resulted No growth after 24 hours . All specim... 08/16/19 Blood Culture - Preliminary, Resulted No growth after 24 hours . All specim... PARUL LORD MD Aug 18, 2019 11:20
[2019-08-18] MEDS: CEFEPIME HCL 2 GM in D5W MINI-BAG PLUS 50 ML IV SCH ×2 (11:46→19:38)
[2019-08-18] MEDS ORDERED: MAGIC MOUTHWASH SUSPENSION BTL SSP PRN (13:00)
[2019-08-18 14:00] VITALS: BP 122/60
[2019-08-18] MEDS ORDERED: DEXTROMETHORPHAN 60MG/10ML SUSP 90ML BTL(DELSYM) PO PRN (14:00)
[2019-08-18] MEDS ORDERED: VANCOMYCIN HCL 1,000 MG, VIAL MATE ADAPTER 1 EACH in D5W 250 ML IV ONE (16:00)
[2019-08-18] MEDS ORDERED: ISOVUE-370 76% 100ML VIAL (Q9967) As Ordered ONE (16:15)
[2019-08-18] MEDS ORDERED: VANCOMYCIN HCL 750 MG, VIAL MATE ADAPTER 1 EACH in D5W 250 ML IV ONE (17:00)
--- NOTE | 2019-08-18 18:02 | REPVR ---
PROCEDURE INFORMATION: Exam: CT Chest With Contrast Exam date and time: 08/18/2019 5:29 PM Age: 79 years old Clinical indication: Fever; Additional info: Neutropenic fever TECHNIQUE: Imaging protocol: Computed tomography of the chest with intravenous contrast. Radiation optimization: All CT scans at this facility use at least one of these dose optimization techniques: automated exposure control; mA and/or kV adjustment per patient size (includes targeted exams where dose is matched to clinical indication); or iterative reconstruction. Contrast material: ISOVUE 370; Contrast volume: 100 ml; Contrast route: IV; COMPARISON: CR PORTABLE CHEST X-RAY 08/16/2019 11:58 AM FINDINGS: Lungs: There is a small patchy infiltrate in the posterior segment of the right upper lobe abutting the major fissure. There are bibasilar infiltrates which may be atelectatic although infection is not excluded, particularly on the left where air bronchograms are demonstrated. Pleural space: Unremarkable. No pneumothorax. No pleural effusion. Heart: There is mild atherosclerotic calcification of the coronary arteries. Aorta: The aorta demonstrates mild atherosclerotic calcification. Lymph nodes: Unremarkable. No enlarged lymph nodes. Bones/joints: The spine demonstrates mild degenerative changes. Soft tissues: Unremarkable. IMPRESSION: 1. There is a small patchy infiltrate in the posterior segment of the right upper lobe abutting the major fissure. 2. There are bibasilar infiltrates which may be atelectatic although infection is not excluded, particularly on the left where air bronchograms are demonstrated. 3. Coronary artery disease. Electronically signed by: Elvis Armenta On 08/18/2019 18:02:24 PM
--- NOTE | 2019-08-18 18:13 | REPVR ---
PROCEDURE INFORMATION: Exam: CT Abdomen And Pelvis With Contrast Exam date and time: 08/18/2019 5:29 PM Age: 79 years old Clinical indication: Fever; Additional info: Neutropenic fever TECHNIQUE: Imaging protocol: Computed tomography of the abdomen and pelvis with intravenous contrast. Radiation optimization: All CT scans at this facility use at least one of these dose optimization techniques: automated exposure control; mA and/or kV adjustment per patient size (includes targeted exams where dose is matched to clinical indication); or iterative reconstruction. Contrast material: ISOVUE 370; Contrast volume: 100 ml; Contrast route: IV; COMPARISON: No relevant prior studies available. FINDINGS: Liver: There is a diffuse decrease in hepatic parenchymal density, consistent with steatosis. Gallbladder and bile ducts: There is mild thickening of the gallbladder wall without evidence of calculi or pericholecystic fluid. Ultrasound correlation suggested for further evaluation if clinically desired. Pancreas: There is a lobular mass in the central mesentery below the level of the pancreas measuring 5.7 x 7.4 x 4.6 cm. The mass contains mixed cystic and solid components with foci of calcification. Surgical clips are demonstrated within the lesion as well. Differential diagnosis includes a carcinoid tumor, desmoplastic tumor and lymphoma. Spleen: Normal. No splenomegaly. Adrenals: Normal. No mass. Kidneys and ureters: Normal. No hydronephrosis. Stomach and bowel: Moderate diverticulosis is present in the distal colon. Minimal pericolonic inflammation demonstrated at the junction of the sigmoid and left colon, findings which may reflect changes related to prior bouts of diverticulitis or mild acute/subacute diverticulitis in the appropriate clinical setting. Appendix: No evidence of appendicitis. Intraperitoneal space: Unremarkable. No free air. No significant fluid collection. Vasculature: The aorta demonstrates mild atherosclerotic calcification. Lymph nodes: See Pancreas Finding. Bladder: Unremarkable as visualized. Reproductive: The prostate gland demonstrates mild hyperplasia. Bones/joints: The spine demonstrates moderate degenerative changes. There is a [id number] central spinal stenosis at L2-L3, moderate to severe central spinal stenosis at L3-L4 and L4-L5. There is a grade 2 anterior spondylolisthesis of L5 on S1 secondary to bilateral L5 spondylolysis. Soft tissues: See Pancreas Finding. IMPRESSION: 1. There is a [id number] central spinal stenosis at L2-L3, moderate to severe central spinal stenosis at L3-L4 and L4-L5. There is a grade 2 anterior spondylolisthesis of L5 on S1 secondary to bilateral L5 spondylolysis. 2. There is a diffuse decrease in hepatic parenchymal density, consistent with steatosis. 3. There is mild thickening of the gallbladder wall without evidence of calculi or pericholecystic fluid. Ultrasound correlation suggested for further evaluation if clinically desired. 4. There is a lobular mass in the central mesentery below the level of the pancreas measuring 5.7 x 7.4 x 4.6 cm as described above. Differential diagnosis includes a carcinoid tumor, desmoplastic tumor and lymphoma. 5. Moderate diverticulosis is present in the distal colon. Minimal pericolonic inflammation demonstrated at the junction of the sigmoid and left colon, findings which may reflect changes related to prior bouts of diverticulitis or mild acute/subacute diverticulitis in the appropriate clinical setting. 6. Mild prostatic hyperplasia. Electronically signed by: Elvis Armenta On 08/18/2019 18:13:03 PM
[2019-08-18] MEDS: SENNA 8.6 MG TAB (SENOKOT) PO SCH (18:19)
[2019-08-18] MEDS: traMADol 50 MG TAB PO PRN (20:29)
[2019-08-18] MEDS: DOXYCYCLINE HYCLATE 100 MG in D5W MINI-BAG PLUS 100 ML IV SCH (21:18)
[2019-08-18 22:00] VITALS: BP 120/72
[2019-08-18] MEDS: ACETAMINOPHEN TAB 650MG DOSE (2X325MG) PO PRN (22:25)
[2019-08-18] MEDS: SODIUM CHLORIDE 0.9% INJ 10 ML SYR IV PRN (23:00)
[2019-08-19] MEDS ORDERED: VANCOMYCIN HCL 1,000 MG, VIAL MATE ADAPTER 1 EACH in D5W 250 ML IV SCH ×3
[2019-08-19 02:00] VITALS: BP 119/55
[2019-08-19] MEDS: traMADol 50 MG TAB PO PRN ×2 (02:55→17:20)
[2019-08-19] MEDS: CEFEPIME HCL 2 GM in D5W MINI-BAG PLUS 50 ML IV SCH ×3 (03:56→17:19)
[2019-08-19] MEDS: SODIUM CHLORIDE 0.9% INJ 10 ML SYR IV PRN ×2 (04:49→22:07)
[2019-08-19 05:15] LABS: HEMATOCRIT 24.1 % (42.0-52.0); HEMOGLOBIN 7.8 g/dl (13.5-17.5); MEAN CORPUSCULAR HEMOGLOBIN 28.8 pg (27.0-33.0); MEAN CORPUSCULAR HGB CONC 32.4 g/dl (32.0-36.5); MEAN CORPUSCULAR VOLUME 88.9 fl (80.0-96.0); RED BLOOD COUNT 2.71 10^6/uL (4.30-6.10)
[2019-08-19] MEDS: ACETAMINOPHEN TAB 650MG DOSE (2X325MG) PO PRN ×2 (05:15→17:20)
[2019-08-19 05:22] LABS: PLATELET COUNT, AUTOMATED 97 10^3/uL (150-450)
[2019-08-19 05:23] LABS: WHITE BLOOD COUNT 1.2 10^3/uL (4.0-10.0)
[2019-08-19 05:42] LABS: BASOPHILS 2 % (0-1); EOSINOPHILS 3 % (0-3); LYMPHOCYTES 11 % (16-44); METAMYELOCYTES 10 % (0-0); MONOCYTES 6 % (0-5); MYELOCYTES 25 % (0-0); NEUTROPHILS 38 % (28-66); PLATELET ESTIMATE DECREASED (NORMAL)
[2019-08-19 05:43] LABS: ANISOCYTOSIS 1+; DOHLE BODIES 1+
[2019-08-19 05:44] LABS: TOXIC GRANULATION 1+
[2019-08-19 05:52] LABS: ALBUMIN 2.1 GM/DL (3.2-5.2); ALT/SGPT 14 U/L (12-78); BILIRUBIN,TOTAL 0.5 MG/DL (0.2-1.0); BLOOD UREA NITROGEN 14 MG/DL (7-18); CARBON DIOXIDE LEVEL 28 MEQ/L (21-32); CHLORIDE LEVEL 98 MEQ/L (98-107); CREATININE FOR GFR 0.84 MG/DL (0.70-1.30); GLOMERULAR FILTRATION RATE > 60.0 (>42); GLUCOSE, FASTING 199 MG/DL (70-100); POTASSIUM SERUM 3.6 MEQ/L (3.5-5.1); SODIUM LEVEL 130 MEQ/L (136-145); TOTAL PROTEIN 5.2 GM/DL (6.4-8.2)
[2019-08-19 06:00] VITALS: BP 120/62
[2019-08-19] MEDS: APIXABAN 5 MG TAB (ELIQUIS) PO SCH ×2 (09:29→20:34)
[2019-08-19] MEDS: SODIUM CHLORIDE 0.9% INJ 10 ML SYR IV SCH (09:29)
[2019-08-19] MEDS: SENNA 8.6 MG TAB (SENOKOT) PO SCH (09:29)
[2019-08-19] MEDS: DOXYCYCLINE HYCLATE 100 MG in D5W MINI-BAG PLUS 100 ML IV SCH ×2 (09:29→20:34)
[2019-08-19] MEDS: FERROUS SULFATE 325MG TAB PO SCH (09:29)
[2019-08-19 10:00] VITALS: BP 120/55
[2019-08-19] MEDS: FILGRASTIM 480 MCG/0.8 ML SYRINGE (J1442) SC SCH (10:35)
--- NOTE | 2019-08-19 10:58 | CR ---
DATE OF CONSULTATION: 08/18/2019 I was asked to consult by hospitalist for evaluation of post viral pneumonia HISTORY OF PRESENT ILLNESS: Mr. 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 The patient was asymptomatic and no therapy was given until May of 2017 when he was noted to have progressive disease with increasing abdominal pain. Another exploratory laparotomy was done in June 2017 and the patient was treated with Rituxan and bendamustine for six cycles. He remained on Rituxan maintenance for every 2 months until 02/14/2018. The patient was noted to have recurrent disease in December of 2018 and he was treated with field radiation therapy. February of 2019, he had worsening abdominal pain with recurrence of disease and the patient received CHOP plus obinutuzumab that started on 03/13/2019. The patient received six cycles of treatment. The first one was associated with severe neutropenia and hospital admission. He has finished his chemotherapy and was scheduled to have a PET scan sometime this month. He came to visit his family in the [facility] and planning to move back to the area to be closer to family as he had retired in [place] since 2005. He stated that with every chemotherapy cycle he was getting weaker and weaker and was not bouncing back. The patient came to the hospital on 08/14/2019 complaining of cough and shortness of breath. The patient was here for 48 hours, discharged. His white count initially was 5.1. The next day it was down to 2.7. He was discharged home, came back on 08/16/2019 complaining of worsening cough, shortness of breath and weakness. His white count was 1.3. His absolute neutrophil count was less than 500 and the patient was readmitted. He was started on IV cefepime. Blood cultures were negative times two. A respiratory panel done on the initial admission 08/12/2019 was positive for two coronavirus species HKU1 and NI63. He states his cough is mostly nonproductive. He has no chest pain but has increasing shortness of breath. He also has a small decubitus ulcer in the sacral area that is painful. PAST MEDICAL HISTORY: Non-Hodgkin lymphoma diagnosed incidentally in 2000 but did not require treatment until 2018. Atrial flutter on chronic anticoagulation with apixaban. Diet control hypertension. Type 2 diabetes, non-insulin dependent. Pancytopenia with chemotherapy but baseline white count is around 5 in-between chemotherapies. Chronic anemia. PAST SURGICAL HISTORY: Exploratory laparotomy on two occasions, first one for bowel obstruction in 2000 and lysis of adhesions diagnosed with lymphoma then in 2018 for another biopsy. Qiulkt-G-Tvvu placement in 2019 and bowel resection for obstruction. SOCIAL HISTORY: He is . He is originally from this area. 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 He is moving back to [facility] to be close to family. He does not use any alcohol or drugs. Smokes. He is . He lives with his and they have four children. FAMILY HISTORY: Prostate cancer. REVIEW OF SYSTEMS: He has a nonproductive cough. No pleurisy. He has generalized weakness. No nausea, vomiting or diarrhea. He is actually constipated. He denies any ear pain, headache, neck stiffness. No dysuria or hematuria. No rashes. On physical exam, he is a healthy looking gentleman in mild respiratory distress. Maximum temperature (Tmax) 100.1 today, previously was afebrile. The initial admission on 08/14/2019 he had a temperature of 94.8. Pulse 71. Respirations 17. Blood pressure 122/60. Oxygen saturation 94% on room air. Oropharynx is clear with no thrush. No lesions. He has some atrophic glossitis in the mid tongue area. Neck: Supple. No jugular venous distention (JVD). No bruits. Heart: Normal S1, S2. No murmurs, rubs or gallops appreciated. Lungs: Crackles on the left side alf up. No wheezes or rhonchi. Abdomen: Soft, nontender. No hepatosplenomegaly. Back: No costovertebral angle (CVA) or lumbosacral tenderness. Rectal area the patient has a stage II decubitus ulcer. The ulcer measures about 1 cm but there is surrounding erythema. Extremities: +1 ankle edema bilaterally. He has an ecchymosis along the lateral aspect of his foot, denies trauma. Right chest wall has an Bvnltk-V-Esny upper chest, nontender, no erythema. LABORATORY DATA: White count 1.3, hemoglobin 8.3, hematocrit 25.3, platelets 102. Absolute neutrophil count is 468, 32% neutrophils, 4% bands, 19% lymphocytes, 4% monocytes, 12% metamyelocytes, 26% myelocytes. Sodium 134, potassium 3.9, chloride 101, bicarbonate 27, BUN 14, creatinine 0.86, glucose 169, calcium 8.5, lactic acid 1.8, AST 16, ALT 20, alkaline phosphatase 57, total protein 5.2, albumin 2.2. Cortisol a.m. 23.3. Ammonia less than 10. TSH 0.87. MICROBIOLOGY: Blood cultures two sets are negative after 48 hours on 08/16/2019. Coronavirus positive respiratory panel on 08/14/2019. Blood culture from the port done on 08/18/2019 is pending. IMAGING STUDIES: CT shows atrophy, no acute intracranial findings, mild mucosal thickening of the left maxillary and right sphenoid sinus. Chest x-ray 08/16/2019 shows no active pulmonary disease. Right central venous catheter is seen with the tip in the right atrium. I have ordered a chest CT and abdominal CT that were done tonight and reviewed. It shows patchy infiltrate in the posterior segment of the right upper lobe and bibasilar infiltrates that could be atelectatic versus infectious. Evidence of coronary artery disease with aortic atherosclerotic calcification. CT of the abdomen shows normal kidneys and ureter, moderate diverticulosis in the distal colon. Mild pericolonic inflammation at the sigmoid and left colon could reflect prior history of diverticulitis but a large lobular mass in the central mesentery below the level of the pancreas measuring 5.7 x 7.4 x 4.6 cm consistent with his previous history of lymphoma. Will need previous CTs to see if that has decreased in size. No splenomegaly, no adrenal masses, hepatic steatosis. IMPRESSION: This is a 79-year-old gentleman with a history non-Hodgkin lymphoma status post recent treatment with CHOP and obinutuzumab with last cycle being on 07/14/2019 presents with febrile neutropenia. Tmax of 100.1 associated with coronavirus infection and possibly post viral pneumonia bacterial versus viral is unclear to me. The patient has increasing shortness of breath with a CT finding possibility of superimposed bacterial pneumonia. CT findings are not consistent with Pneumocystis pneumonia or fungal infection. He is not hypoxic. He does not have lactic acidosis. Other than his generalized weakness and increasing cough he is clinically doing well. PLAN: Suggest obtaining a sputum Gram stain and culture to rule out bacterial pneumonia, fungal smear and culture. Continue IV cefepime 1 gram every 8 hours. Would add doxycycline 100 mg IV every 12 hours to cover for legionnaire as well as MRSA until we have MRSA PCR screen done and a sputum culture available. Send urine for Legionella antigen and pneumococcal antigen. Procalcitonin will be ordered for the morning, if it is normal, then this is all viral pneumonia. I would not recommend adding IV vancomycin. Doxycycline would cover MRSA and atypicals. Please obtain CT scan records from Dr. Reyes his oncologist to compare with his current CT abdomen . [facility]
[2019-08-19 11:01] LABS: HEMATOCRIT 25.1 % (42.0-52.0); HEMOGLOBIN 8.2 g/dl (13.5-17.5)
[2019-08-19] MEDS ORDERED: BISACODYL 5 MG TAB PO PRN (13:30)
[2019-08-19 14:00] VITALS: BP 126/55
[2019-08-19] MEDS ORDERED: MOM 30ML SUSPENSION UDC PO ONE (14:00)
[2019-08-19] MEDS ORDERED: MOM 30ML SUSPENSION UDC PO PRN (14:00)
[2019-08-19] MEDS: SENOKOT S TAB PO SCH ×2 (14:20→20:34)
[2019-08-19] MEDS ORDERED: PERCOCET 5MG/325MG TAB PO PRN (16:45)
[2019-08-19] MEDS: BISACODYL 5 MG TAB PO SCH (16:48)
[2019-08-19] MEDS ORDERED: MORPHINE 4 MG/ML 1ML VIAL/SYRINGE (J2270) IV ONE (17:45)
[2019-08-19 18:00] VITALS: BP 131/57
--- NOTE | 2019-08-19 18:31 | IPN ---
DATE: 08/19/2019 The patient was afebrile overnight. He continues to have cough that is nonproductive, unable to expectorate. Hemoglobin this morning is 7.8, repeat hemoglobin of 8.2. He complains of some shortness of breath. The patient complains of constipation despite a bowel regimen. PHYSICAL EXAMINATION: Temperature 98.1, pulse 98, respiratory rate 19, blood pressure 120/55, 98% on room air. GENERAL: The patient is awake, alert, oriented times three, answering questions appropriately. Face is symmetric. Tongue is midline. No jugular venous distention (JVD). No thyromegaly. LUNGS: Diminished, left-sided crackles at the base. HEART: S1, S2, sinus rhythm. ABDOMEN: Soft, nontender, nondistended. EXTREMITIES: No pitting edema. LABORATORY DATA: White count 1.2, hemoglobin 7.8, hematocrit 24, platelet count 97, repeat hemoglobin 8.2, hematocrit 25. Sodium 130, potassium 3.6, chloride 98, bicarbonate 28, BUN 14, creatinine 0.84, glucose of 199. Blood cultures show no growth after 24 hours. IMAGING STUDIES: CT abdomen and pelvis: 5.7 x 7.4 x 4.6 lobular mass in the central mesentery below the level of the pancreas, cystic and solid with focus of calcification, differential includes carcinoid tumor, desmoplastic tumor and lymphoma. No splenomegaly. Moderate diverticulosis. Findings may reflect changes related to prior bouts of diverticulitis or mild acute subacute diverticulitis in the appropriate setting. ASSESSMENT AND PLAN: This is a 79-year-old DO NOT RESUSCITATE/DO NOT INTUBATE male with prior diagnosis of lymphoma diagnosed 2000, recurrent in 2018, follows with an oncologist in [place], recently moved to the area to be with the family due to refractory lymphoma. The patient will follow with a medical oncologist in [place]. The patient was admitted for shortness of breath, found to have coronavirus and pancytopenia. IMPRESSION: 1. Pancytopenia related to chemotherapy with febrile neutropenia. The patient is currently on IV cefepime and doxycycline managed by infectious disease specialist. Per Dr. Erma Crespo, continue with Neupogen day number four until absolute neutrophil count (ANC) greater than 1500. 2. Paroxysmal atrial flutter. Currently in normal sinus rhythm. Not on anticoagulation due to pancytopenia. 3. Coronaviral upper respiratory infection. Droplet precautions. 4. Recurrent lymphoma, status post CHOP. Recent chemotherapy three weeks ago with obinutuzumab. Last cycle was 07/14/2019. The patient has decided to followup with previous oncologist in [place]. They have an appointment in the last week of August 2019. DISPOSITION: 3-4 days, pending absolute neutrophil count (ANC) levels to reach greater than 1.5 and awaiting culture results.
[2019-08-19 22:00] VITALS: BP 154/72
[2019-08-19] MEDS: MORPHINE 4 MG/ML 1ML VIAL/SYRINGE (J2270) IV PRN (22:07)
--- NOTE | 2019-08-19 22:56 | IPN ---
DATE: 08/19/2019 Mr. Daugherty is seen and examined at the bedside this afternoon. He reports that he is still very constipated and has not had a bowel movement since last . He has a lot of back pain for which he was given tramadol last night, but he does not feel that the tramadol helped him. Otherwise, his breathing is okay. He is coughing some and bringing up some clear sputum, but otherwise he feels somewhat better than he did when he came in. He still has no appetite and he still has no desire to eat. OBJECTIVE: His vitals at this time are temperature 97.9, pulse of 80, respiratory rate of 19, blood pressure 126/55, pulse oximetry is 97% on room air. GENERAL: He is laying in bed. He is calm, cooperative, in no acute distress. He is not using any accessory muscles of respiration. HEAD: Normocephalic, atraumatic. HEENT EXAM: His extraocular movements are intact. His pupils are equally round and reactive to light. He had some atrophic glossitis on the mid tongue area. Neck is supple. No jugular venous distension and no bruits. CHEST: He has even chest rise. LUNGS: He had some crackles on the left side, snf up, but no wheezes or rhonchi. HEART: Normal S1, normal S2, regular rate and rhythm. No murmurs, rubs or gallops are appreciated. ABDOMEN: Soft and nontender to palpation. No hepatosplenomegaly. BACK: He has no costovertebral angle (CVA) tenderness or lumbosacral tenderness. His rectal area has a stage II decubitus ulcer. The ulcer measures about 1 cm and there is surrounding erythema. EXTREMITIES: He has trace ankle edema bilaterally. He had some ecchymosis along the lateral aspect of his right foot. He denies any trauma. Right chest wall has an Infusaport in his upper chest; it is nontender and nonerythematous. LABORATORY DATA: Today his complete blood count (CBC) demonstrates a white blood cell count of 1.2 with a calculated ANC of 516. His hemoglobin is 78 and on recheck 8.2. Hematocrit 24.1 and on recheck 25.1. His platelets are 97. Sodium was found to be 130, potassium 3.6, carbon dioxide is 28, BUN 14 and creatinine of 0.84. His liver enzymes are within normal limits. His procalcitonin was found to be 0.12. He has not had any growth on his blood cultures over the past 24 hours. On imaging, he did have a chest CT and an abdomen and pelvis CT yesterday. The chest CT read was there is a small patchy infiltrate in the posterior segment of the right upper lobe abutting the major fissure. There are bibasilar infiltrates, which may be atelectatic although infection is not excluded particularly on the left where the air bronchograms are demonstrated and coronary artery disease. In addition, the patient had an abdomen and pelvic Ct, and on the abdomen; and pelvic CT, there is a mild to moderate central spinal stenosis at L2 to L3, moderate to severe central spinal stenosis at L3 to L4 and L4 to L5. There is a grade 2 anterior spondylolisthesis of L5 on S1 secondary to bilateral L5 spondylolysis. There is a diffuse decrease in the hepatic parenchymal density consistent with steatosis. There is mild thickening of the gallbladder wall without evidence of calculi or pericholecystic fluid. Ultrasound correlation is suggested for further evaluation. There is lobular mass in the central mesentery below the level of the pancreas measuring 5.7 x 7.4 x 4.6 cm as described above. Differential diagnosis includes carcinoid tumor, desmoplastic tumor and lymphoma. Moderate diverticulosis is present in the distal colon. Minimal pericolonic inflammation demonstrated at the junction of the sigmoid and left colon. Findings that may reflect changes related to prior bouts of diverticulitis or mild acute/subacute diverticulitis in the appropriate clinical setting and mild prosthetic hyperplasia. IMPRESSION: This is a 79-year-old gentleman with a history of non-Hodgkin's lymphoma status post recent treatment with CHOP and obinutuzumab with last cycle being on July 14, 2019 presents with febrile neutropenia. At the time of admission, his T-max was 100.1 associated with know Coronavirus infection and possibly post viral pneumonia, bacterial versus viral, why that is unclear. The patient has increasing shortness of breath with a CT finding of possibly superimposed bacterial pneumonia. CT findings are not consistent with pneumocystic pneumonia or fungal infection. He is not hypoxic. He does have lactic acidosis; other than his generalized weakness and increasing cough, he is clinically doing well. PLAN: We will await a sputum Gram stain and culture to rule out bacterial pneumonia and a fungal smear as well. We agree with the current IV antibiotic choice of IV cefepime 1 gram every 8 hours and we have added doxycycline 100 mg IV every 12 hours for coverage of Legionnaires, as well as methicillin-resistant Staphylococcus aureus (MRSA). We have sent the urine for Legionella antigen and pneumococcal antigen. His procalcitonin was found to be low. Therefore, it is more likely his infection is due to his viral pneumonia. No need to add IV vancomycin at this time as doxycycline covers methicillin-resistant Staphylococcus aureus (MRSA). We have obtained the previous CT scan record from Dr. 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 Otherwise, we have ordered pain management for the patient with oxycodone, which is what he takes at home, as well as some Dulcolax for his constipation. It was stressed to the patient that he will need to have a bowel movement prior to asking for his pain medication at this time. MARLENY
[2019-08-20] MEDS: FLEET ENEMA PR PRN (00:30)
[2019-08-20 02:00] VITALS: BP 113/59
[2019-08-20] MEDS: ACETAMINOPHEN TAB 650MG DOSE (2X325MG) PO PRN ×3 (02:06→20:41)
[2019-08-20] MEDS: CEFEPIME HCL 2 GM in D5W MINI-BAG PLUS 50 ML IV SCH ×3 (02:07→18:39)
[2019-08-20] MEDS: traMADol 50 MG TAB PO PRN (02:43)
[2019-08-20] MEDS: SODIUM CHLORIDE 0.9% INJ 10 ML SYR IV PRN ×2 (03:04→12:17)
[2019-08-20 06:00] VITALS: BP 117/55
[2019-08-20] MEDS: APIXABAN 5 MG TAB (ELIQUIS) PO SCH ×2 (08:57→20:32)
[2019-08-20] MEDS: FERROUS SULFATE 325MG TAB PO SCH (08:58)
[2019-08-20] MEDS: SODIUM CHLORIDE 0.9% INJ 10 ML SYR IV SCH (08:59)
[2019-08-20] MEDS: BISACODYL 5 MG TAB PO SCH (09:00)
[2019-08-20] MEDS ORDERED: oxyCODONE 5MG TAB PO PRN (09:00)
[2019-08-20] MEDS ORDERED: NALOXONE INJ 0.4 MG/1 ML VIAL (J2310) IV PRN (09:00)
[2019-08-20] MEDS: DOXYCYCLINE HYCLATE 100 MG in D5W MINI-BAG PLUS 100 ML IV SCH (09:02)
[2019-08-20] MEDS: SENOKOT S TAB PO SCH ×2 (09:02→20:32)
[2019-08-20 09:15] LABS: HEMATOCRIT 24.7 % (42.0-52.0); HEMOGLOBIN 7.9 g/dl (13.5-17.5); MEAN CORPUSCULAR HEMOGLOBIN 28.8 pg (27.0-33.0); MEAN CORPUSCULAR VOLUME 90.1 fl (80.0-96.0); PLATELET COUNT, AUTOMATED 104 10^3/uL (150-450); RED BLOOD COUNT 2.74 10^6/uL (4.30-6.10)
[2019-08-20 09:18] LABS: WHITE BLOOD COUNT 1.4 10^3/uL (4.0-10.0)
[2019-08-20 09:45] LABS: BASOPHILS 1 % (0-1); EOSINOPHILS 4 % (0-3); LYMPHOCYTES 24 % (16-44); METAMYELOCYTES 21 % (0-0); MONOCYTES 6 % (0-5); MYELOCYTES 10 % (0-0); NEUTROPHILS 8 % (28-66); PROMYELOCYTES 2 % (0-0)
[2019-08-20 09:46] LABS: HYPOCHROMASIA 2+; PLATELET ESTIMATE NORMAL (NORMAL)
[2019-08-20] MEDS: FILGRASTIM 480 MCG/0.8 ML SYRINGE (J1442) SC SCH (09:57)
[2019-08-20] MEDS: oxyCODONE 10 MG CR TAB PO SCH ×2 (09:58→20:32)
[2019-08-20 10:00] VITALS: BP 118/49
[2019-08-20 10:20] LABS: BLOOD UREA NITROGEN 13 MG/DL (7-18); CALCIUM LEVEL 9.7 MG/DL (8.8-10.2); CARBON DIOXIDE LEVEL 29 MEQ/L (21-32); CHLORIDE LEVEL 97 MEQ/L (98-107); CREATININE FOR GFR 0.87 MG/DL (0.70-1.30); GLOMERULAR FILTRATION RATE > 60.0 (>42); GLUCOSE, FASTING 158 MG/DL (70-100); POTASSIUM SERUM 3.7 MEQ/L (3.5-5.1); SODIUM LEVEL 132 MEQ/L (136-145)
[2019-08-20 14:00] VITALS: BP 126/50
[2019-08-20 14:36] LABS: HEMATOCRIT 25.9 % (42.0-52.0); HEMOGLOBIN 8.4 g/dl (13.5-17.5)
[2019-08-20 18:00] VITALS: BP 114/58
[2019-08-20] MEDS: DOXYCYCLINE HYCLATE 100 MG TAB PO SCH (20:32)
--- NOTE | 2019-08-20 21:41 | IPN ---
DATE: 08/20/2019 He continues to complain of generalized weakness, cough with slight production of white sputum, maximum temperature (t-max) was 100.3 overnight, current temperature 100.0. The patient complains of 10 out of 10 pain in the abdomen despite Percocet and intravenous morphine. However, per pharmacy, the patient has only received one dose of morphine and no Percocet overnight. The patient has severe central spinal canal stenosis and spondylolisthesis of the back on CT, as well as lobular mass below the pancreas measuring 5.7 x 7.4 x 4.6 cm. He denies any dysuria, urgency, frequency and has had constipation. He had a bowel regimen yesterday with one bowel movement. The patient complains of insomnia, wishes he could sleep more at night. His appetite is decreased, he is barely eating. He does not like Ensure but will continue to try this. PHYSICAL EXAMINATION: VITAL SIGNS: Temperature maximum 100, pulse 90, respiratory rate 18, blood pressure 117/55, 94% on room air. GENERAL: The patient is in no respiratory distress. Anicteric. No jaundice. LUNGS: Diminished on the left, crackles at the bases. HEART: S1, S2. Sinus rhythm. ABDOMEN: Soft, tender in the bilateral lower quadrants. No rebound or guarding. Positive bowel sounds. No costovertebral angle tenderness. Stage III decubital ulcer, 1 cm. EXTREMITIES: Trace to 1+ pitting edema. Right sided [id number]. LABORATORY DATA: White count 1.4, hemoglobin 7.9, hematocrit 24.7, platelet count 104. Sodium 132, potassium 3.7, chloride 97, bicarbonate 29, BUN 13, creatinine 0.87, glucose 158. ASSESSMENT AND PLAN: 79-year-old male with a known history of lymphoma, now with recurrence with progressive disease. Admitted for worsening abdominal pain, upper respiratory infection with coronavirus and debility. The patient was found to be pancytopenic due to chemotherapy with febrile neutropenia, still with ANC of 458. CURRENT ISSUES: 1. Pancytopenia with recurrent low grade temperatures. Currently on doxycycline and cefepime. Vancomycin has been discontinued. Blood cultures remain negative. The patient had coronavirus on respiratory panel. Infectious disease has been consulted. 2. Recurrent lymphoma, status post CHOP. Recent chemotherapy was 07/14/2019 in [place]. He decided to followup with oncologist in [place] with an appointment for the last week of August 2019. 3. Cancer cachexia. The patient is currently on supplemental nutrition with Ensure. Mixing Plant Operator has been consulted. The patient has progressive recurrent lymphoma despite chemotherapy. 4. Paroxysmal atrial flutter, currently sinus rhythm. No anticoagulation due to pancytopenia. 5. Coronavirus, upper respiratory infection. On droplet precautions. 6. Chemotherapy induced anemia with bone marrow suppression. THe patient will be transfused 2 units of red blood cells today. Continue with full supportive care. No signs of any active bleeding anywhere. DISPOSITION: Awaiting the patient's ANC to be greater than 1500. He has passed a home safety evaluation.
[2019-08-20 22:00] VITALS: BP 113/61
[2019-08-20] MEDS: MORPHINE 4 MG/ML 1ML VIAL/SYRINGE (J2270) IV PRN (23:23)
[2019-08-21] VITALS (11 sets, daily range): BP systolic 101–123; BP diastolic 56–70
[2019-08-21] MEDS: CEFEPIME HCL 2 GM in D5W MINI-BAG PLUS 50 ML IV SCH ×3 (03:39→20:05)
[2019-08-21] MEDS: MORPHINE 4 MG/ML 1ML VIAL/SYRINGE (J2270) IV PRN (04:32)
[2019-08-21] MEDS: ACETAMINOPHEN TAB 650MG DOSE (2X325MG) PO PRN (06:55)
[2019-08-21 07:39] LABS: HEMOGLOBIN 7.9 g/dl (13.5-17.5); MEAN CORPUSCULAR HEMOGLOBIN 28.4 pg (27.0-33.0); MEAN CORPUSCULAR HGB CONC 31.6 g/dl (32.0-36.5); MEAN CORPUSCULAR VOLUME 89.9 fl (80.0-96.0); PLATELET COUNT, AUTOMATED 115 10^3/uL (150-450); RED BLOOD COUNT 2.78 10^6/uL (4.30-6.10); WHITE BLOOD COUNT 2.4 10^3/uL (4.0-10.0)
[2019-08-21 07:59] LABS: BLOOD UREA NITROGEN 14 MG/DL (7-18); CALCIUM LEVEL 9.7 MG/DL (8.8-10.2); CARBON DIOXIDE LEVEL 28 MEQ/L (21-32); CHLORIDE LEVEL 97 MEQ/L (98-107); GLOMERULAR FILTRATION RATE > 60.0 (>42); GLUCOSE, FASTING 208 MG/DL (70-100); POTASSIUM SERUM 4.3 MEQ/L (3.5-5.1); SODIUM LEVEL 132 MEQ/L (136-145)
[2019-08-21] MEDS: FERROUS SULFATE 325MG TAB PO SCH (08:19)
[2019-08-21] MEDS: SENOKOT S TAB PO SCH ×2 (08:20→20:05)
[2019-08-21] MEDS: APIXABAN 5 MG TAB (ELIQUIS) PO SCH ×2 (08:20→20:05)
[2019-08-21] MEDS: DOXYCYCLINE HYCLATE 100 MG TAB PO SCH ×2 (08:20→20:04)
[2019-08-21] MEDS: BISACODYL 5 MG TAB PO SCH (08:20)
[2019-08-21] MEDS: oxyCODONE 10 MG CR TAB PO SCH ×2 (08:20→20:04)
[2019-08-21] MEDS: SODIUM CHLORIDE 0.9% INJ 10 ML SYR IV SCH (08:21)
[2019-08-21 08:57] LABS: BASOPHILS 1 % (0-1); EOSINOPHILS 4 % (0-3); LYMPHOCYTES 9 % (16-44); METAMYELOCYTES 6 % (0-0); MONOCYTES 7 % (0-5); MYELOCYTES 21 % (0-0); NEUTROPHILS 38 % (28-66)
[2019-08-21 08:58] LABS: ANISOCYTOSIS 1+; MICROCYTOSIS 1+; PLATELET ESTIMATE DECREASED (NORMAL); TOXIC GRANULATION 1+
--- NOTE | 2019-08-21 09:53 | REP ---
CHEST, TWO VIEWS: Two views of the chest is performed and compared to a prior study of 08/16/2019. There is mild patchy atelectasis or infiltrate in lung base, left greater than right. There is mild elevation of the left hemidiaphragm. The heart is normal in size. Mediastinal silhouette is unremarkable. There is a right central venous catheter with the tip in the right atrium. There are degenerative changes of the spine. Electronically Signed by Brain Barriga MD 08/21/2019 07:42 P
[2019-08-21] MEDS ORDERED: FUROSEMIDE 20 MG/2 ML VIAL (J1940) IV ONE (12:15)
[2019-08-21] MEDS ORDERED: ACETAMINOPHEN TAB 650MG DOSE (2X325MG) PO ONE (12:15)
[2019-08-21] MEDS ORDERED: FUROSEMIDE 20 MG/2 ML VIAL (J1940) IV SCH (12:15)
[2019-08-21] MEDS ORDERED: diphenhydrAMINE 50 MG CAP PO ONE (12:15)
[2019-08-21] MEDS: SODIUM CHLORIDE 0.9% INJ 10 ML SYR IV PRN (13:59)
[2019-08-21] MEDS: FILGRASTIM 480 MCG/0.8 ML SYRINGE (J1442) SC SCH (14:00)
[2019-08-21 14:30] LABS: HEMATOCRIT 26.1 % (42.0-52.0); HEMOGLOBIN 8.2 g/dl (13.5-17.5)
[2019-08-21] MEDS: MEGESTROL ES SUSP 625MG 5ML ORAL SYRINGE PO SCH (17:22)
[2019-08-21] MEDS: FLEET ENEMA PR PRN (18:36)
[2019-08-21] MEDS ORDERED: BISACODYL 10 MG SUPP PR PRN (19:15)
[2019-08-21] MEDS ORDERED: MAGNESIUM CITRATE 300 ML BTL PO ONE (20:00)
[2019-08-21] MEDS ORDERED: BISACODYL 10 MG SUPP PR ONE (20:00)
[2019-08-22] VITALS (7 sets, daily range): BP systolic 118–134; BP diastolic 56–76
[2019-08-22] MEDS: CEFEPIME HCL 2 GM in D5W MINI-BAG PLUS 50 ML IV SCH (03:31)
[2019-08-22 06:41] LABS: HEMATOCRIT 32.6 % (42.0-52.0); MEAN CORPUSCULAR HEMOGLOBIN 28.6 pg (27.0-33.0); MEAN CORPUSCULAR HGB CONC 32.5 g/dl (32.0-36.5); MEAN CORPUSCULAR VOLUME 87.9 fl (80.0-96.0); PLATELET COUNT, AUTOMATED 133 10^3/uL (150-450); RED BLOOD COUNT 3.71 10^6/uL (4.30-6.10); WHITE BLOOD COUNT 7.9 10^3/uL (4.0-10.0)
[2019-08-22 06:45] LABS: HEMOGLOBIN 10.6 g/dl (13.5-17.5)
[2019-08-22 06:47] LABS: BLOOD UREA NITROGEN 18 MG/DL (7-18); CARBON DIOXIDE LEVEL 29 MEQ/L (21-32); CHLORIDE LEVEL 99 MEQ/L (98-107); CREATININE FOR GFR 1.07 MG/DL (0.70-1.30); GLOMERULAR FILTRATION RATE > 60.0 (>42); GLUCOSE, FASTING 203 MG/DL (70-100); POTASSIUM SERUM 4.3 MEQ/L (3.5-5.1); SODIUM LEVEL 133 MEQ/L (136-145)
[2019-08-22 07:04] LABS: LYMPHOCYTES 2 % (16-44); METAMYELOCYTES 19 % (0-0); MONOCYTES 3 % (0-5); MYELOCYTES 12 % (0-0); NEUTROPHILS 54 % (28-66)
[2019-08-22 07:07] LABS: PLATELET ESTIMATE DECREASED (NORMAL); TOXIC GRANULATION 1+; TOXIC VACUOLATION 1+
[2019-08-22 07:08] LABS: DOHLE BODIES 1+; TEAR DROP CELLS 1+
[2019-08-22 07:09] LABS: ANISOCYTOSIS 1+; POIKILOCYTOSIS 1+
[2019-08-22] MEDS: FERROUS SULFATE 325MG TAB PO SCH (09:11)
[2019-08-22] MEDS: APIXABAN 5 MG TAB (ELIQUIS) PO SCH ×2 (09:11→21:45)
[2019-08-22] MEDS: SENOKOT S TAB PO SCH ×2 (09:11→21:43)
[2019-08-22] MEDS: oxyCODONE 10 MG CR TAB PO SCH ×2 (09:11→21:45)
[2019-08-22] MEDS: BISACODYL 5 MG TAB PO SCH (09:11)
[2019-08-22] MEDS: DOXYCYCLINE HYCLATE 100 MG TAB PO SCH ×2 (09:11→21:45)
[2019-08-22] MEDS: MEGESTROL ES SUSP 625MG 5ML ORAL SYRINGE PO SCH (09:11)
[2019-08-22] MEDS: SODIUM CHLORIDE 0.9% INJ 10 ML SYR IV SCH (09:12)
--- NOTE | 2019-08-22 10:18 | IPN ---
DATE: 08/21/2019 The patient remains with fevers of 100.6 maximum temperature (T-max) and 101 on 08/20/2019 at 02:00 p.m. He is currently on cefepime and doxycycline. He continues to complain of some abdominal discomfort. Per CT review of the abdomen, this is unchanged from prior scan according to his medical oncologist. The patient otherwise denies any change in his cough. He continues to have a dry, difficult to expectorate cough. Despite having palpitations, ventricular rate of 118, sinus rhythm, the patient denies any lightheadedness or dizziness. He feels a little weak and fatigued today and did not walk around as he did yesterday. The patient otherwise denies any dysuria, urgency, frequency. Denies any chills. According to the , appetite remains poor. He is not keen on drinking his Ensure but will try. No diarrhea. The patient is continued on empiric antibiotics with known history of Coronavirus positive as well as on daily Neupogen until absolute neutrophil count (ANC) is greater than 1500. The patient complains of chronic back pain with no costovertebral angle (CVA) tenderness, dysuria, urgency, or frequency. Maximum temperature (T-max) 101, current temperature 98.5, pulse 108, respiratory rate 17, blood pressure 116/60, 98% on room air. GENERAL: The patient has slight pallor. No icterus or jaundice. Dry mucous membranes. No jugular venous distention (JVD) or thyromegaly. No cervical lymphadenopathy. LUNGS: Clear. Fine crackles at the base. HEART: S1, S2, sinus tachycardia. ABDOMEN: Soft, tender in the epigastric, positive bowel sounds. No rebound or guarding. No fluid wave. EXTREMITIES: No cyanosis or clubbing. Trace edema. LABORATORY DATA: White count 2.4, hemoglobin 8.2, hematocrit 26, platelet count of 115. Sodium 132, potassium 4.3, chloride 97, bicarbonate 28, BUN 14, creatinine 1, glucose of 208. Blood culture negative after 72 hours on 08/16/2019, 08/18/2019 and 08/19/2019. Chest x-ray 08/21/2019: Patchy infiltrate of the lung base, left greater than right, mild elevation of the left hemidiaphragm. Heart is normal. Mediastinal silhouette is unremarkable. Right central venous catheter with tip in the right atrium. ASSESSMENT AND PLAN: A 79-year-old male with history of lymphoma with recurrence and progressive disease, admitted for worsening abdominal pain, upper respiratory infection with Coronavirus and febrile pancytopenia secondary to chemotherapy. ACTIVE ISSUES: 1. Pancytopenia, secondary to chemotherapy. The patient is currently on Neupogen until absolute neutrophil count (ANC) is greater than 1500, currently over 1200. Continue with Neupogen today until ANC is 1500 in the morning. 2. Neutropenic fever, currently on Neupogen and empiric therapy with doxycycline and cefepime. The patient's blood cultures are negative so far. He is positive for Coronavirus. 3. Symptomatic anemia. The patient complains of generalized weakness. Today, he is unable to ambulate well from bedroom to the bathroom and previously ambulated outside the room. At this time, the patient may benefit from red blood cell (RBC) transfusion due to symptomatic anemia and has been advised to be transfused red blood cells. 4. Lymphoma. The patient is followed in [place]. He will be returning there to sell his house and would like to follow with his previous medical oncologist who will then decide if they want to continue with chemotherapy. He had been previously seen in [place]. However, their granddaughter, Nevaeh, would like him to followup with someone at the [facility]. Family has not decided which path to take but he is keen on going back to [place] to sell his house and followup with his medical oncologist there. He had received CHOP, currently on obinutuzumab, last cycle was 07/14/2019. He does have an appointment with a medical oncologist in [place] at the end of August 2019 but will await family and refer accordingly. 5. Paroxysmal atrial flutter. No recurrence. Currently in sinus rhythm. Currently not on anticoagulation due pancytopenia. No rate control medications. 6. Upper respiratory infection with Coronavirus. Currently on droplet precautions with recurrent fevers. DISPOSITION: Awaiting final recommendations from infectious disease specialist. The patient's fevers may be secondary to his lymphoma versus fever of undetermined origin (FUO). Defer to infectious disease (ID) for duration of antibiotics and whether it would be IV or oral. At this time, he is currently on IV cefepime and oral doxycycline.
--- NOTE | 2019-08-22 17:47 | IPNPDOC ---
Text Note Date of Service The patient was seen on 08/22/19. NOTE I saw Mr Daugherty at the bedside this afternoon and introduced myself and salazar d the [facility] to him. He stated he intends to relocate back to this area and will be following up for further treatment for his lymphoma here. He had CHOP several years ago he stated he tolerated well, with relapse he was treated by an onoclogist in [place] with RT and different chemotherapy he reports he didd not tolerate well ( either treatment ). He was visiting here and was treated for atrial flutter recently, then was readmitted with pancytopenia. He reported he has not been able to stay out of bed very long since his last chemotherapy treatment and he feels he is not rebounding a well as he did previously from treatment. He also has decubitus ulcers that are un comfortable though he has a doughnut he has customized to improve his comfort in bed. He reported he has advance directives including HCP and MOLST form. He was given my business card and once his plans for discharge are known he will contact me for a follow up appointment, Julio FARNSWORTH, I+O Julio FARNSWORTH, I+O Laboratory Tests 08/22/19 06:11 Vital Signs Date Time Temp Pulse Resp B/P (MAP) Pulse Ox O2 Delivery O2 Flow Rate FiO2 08/22/19 14:00 97.8 97 18 123/58 (79) 90 Room Air I&O- Last 24 Hours up to 6 AM 08/22/19 05:59 Intake Total 2720 ml Output Total 300 ml Balance 2420 ml Shasha RIVAS [facility] Aug 22, 2019 17:47
[2019-08-23] VITALS (7 sets, daily range): BP systolic 111–125; BP diastolic 62–71
[2019-08-23 06:16] LABS: HEMATOCRIT 33.7 % (42.0-52.0); HEMOGLOBIN 10.9 g/dl (13.5-17.5); MEAN CORPUSCULAR HEMOGLOBIN 28.2 pg (27.0-33.0); MEAN CORPUSCULAR HGB CONC 32.3 g/dl (32.0-36.5); MEAN CORPUSCULAR VOLUME 87.3 fl (80.0-96.0); PLATELET COUNT, AUTOMATED 147 10^3/uL (150-450); RED BLOOD COUNT 3.86 10^6/uL (4.30-6.10); WHITE BLOOD COUNT 8.6 10^3/uL (4.0-10.0)
[2019-08-23 07:20] LABS: EOSINOPHILS 1 % (0-3); LYMPHOCYTES 3 % (16-44); METAMYELOCYTES 4 % (0-0); MONOCYTES 6 % (0-5); MYELOCYTES 8 % (0-0); NEUTROPHILS 59 % (28-66); PLATELET ESTIMATE DECREASED (NORMAL); TOXIC GRANULATION 2+
[2019-08-23 07:21] LABS: ANISOCYTOSIS 1+; OVALOCYTES 1+; POIKILOCYTOSIS 1+
[2019-08-23 07:36] LABS: BLOOD UREA NITROGEN 21 MG/DL (7-18); CALCIUM LEVEL 10.1 MG/DL (8.8-10.2); CARBON DIOXIDE LEVEL 29 MEQ/L (21-32); CHLORIDE LEVEL 98 MEQ/L (98-107); CREATININE FOR GFR 1.03 MG/DL (0.70-1.30); GLOMERULAR FILTRATION RATE > 60.0 (>42); GLUCOSE, FASTING 172 MG/DL (70-100); POTASSIUM SERUM 4.4 MEQ/L (3.5-5.1); SODIUM LEVEL 133 MEQ/L (136-145)
--- NOTE | 2019-08-23 08:53 | IPN ---
DATE: 08/22/2019 Joe is complaining of decreased appetite. Abdominal pain better. He had no fever or chills for the past 48 hours. He has decreased appetite. He still has a cough which is mostly nonproductive. The patient is frustrated with his weakness. He tried to walk and was going to fall when he was walking down the hallway with the assistance of his . LABORATORY DATA: White count is 7.9, hemoglobin 10.6, hematocrit 32.6, platelets 133, 54% neutrophils, 10% bands, 2% lymphocytes, 19% metamyelocytes. Sodium 133, potassium 4.3, chloride 99, bicarbonate 29, BUN 18, creatinine 1.07, glucose 203, calcium 10, CRP 12.7. Procalcitonin 0.12. Blood cultures, four sets, were negative. Urine Legionella antigen and pneumococcal antigen are pending. Chest x-ray showed mild patchy atelectasis/infiltrate in the lung base, left greater than right. IMPRESSION: 1. Febrile neutropenia, resolved. 2. Coronavirus infection with possibility of superimposed pneumonia in a patient who is immunocompromised. The patient has received 5 days of cefepime, which will be discontinued today. He is on doxycycline 100 mg by mouth twice a day for 10 days. His procalcitonin was 0.12, which is more consistent with a viral infection. 3. Anorexia with decreased appetite from malignancy. Patient on Megace. Could consider using Marinol if that does not work. PLAN: Continue doxycycline. Check on urine Legionella antigen.
[2019-08-23] MEDS: MEGESTROL ES SUSP 625MG 5ML ORAL SYRINGE PO SCH (09:06)
[2019-08-23] MEDS: APIXABAN 5 MG TAB (ELIQUIS) PO SCH ×2 (09:07→20:23)
[2019-08-23] MEDS: DOXYCYCLINE HYCLATE 100 MG TAB PO SCH ×2 (09:07→20:23)
[2019-08-23] MEDS: SENOKOT S TAB PO SCH ×2 (09:07→20:23)
[2019-08-23] MEDS: BISACODYL 5 MG TAB PO SCH (09:07)
[2019-08-23] MEDS: FERROUS SULFATE 325MG TAB PO SCH (09:08)
[2019-08-23] MEDS: oxyCODONE 10 MG CR TAB PO SCH (09:08)
[2019-08-23] MEDS: SODIUM CHLORIDE 0.9% INJ 10 ML SYR IV SCH (09:08)
[2019-08-23] MEDS ORDERED: NALOXONE INJ 0.4 MG/1 ML VIAL (J2310) IV STA (10:49)
[2019-08-23] MEDS ORDERED: oxyCODONE 5MG TAB PO PRN (11:30)
[2019-08-23] MEDS: ACETAMINOPHEN TAB 650MG DOSE (2X325MG) PO SCH ×3 (12:52→20:22)
[2019-08-23 12:53] LABS: IMMUNOGLOBULIN A 58.1 MG/DL (70-400); IMMUNOGLOBULIN M 16.4 MG/DL (40-230)
[2019-08-23 14:09] LABS: BODY FLUID CULTURE Not indicated. (.); LEGIONELLA ANTIGEN URINE Negative (Negative); ORGANISM ID Not indicated. (.); SPECIMEN SOURCE Urine (.); URINE STREP PNEUMONIAE ANTIGEN Negative (Negative)
--- NOTE | 2019-08-23 15:35 | IPN ---
DATE: 08/23/2019 Patient, according to the , has been increasingly weak. He is unable to ambulate without assistance this morning. He has also been increasingly sedated since he was placed on OxyContin 10 twice a day and oxycodone as needed. The patient, however, says that his pain is much better controlled with this regimen, but he is not alert and awake this morning and not as conversant as yesterday. The patient has received a total (DICTATION ENDS HERE)
[2019-08-23] MEDS: POLYSPORIN TOPICAL OINTMENT 15GM TOP SCH ×2 (15:53→20:23)
--- NOTE | 2019-08-23 16:01 | CR ---
HEMATOLOGY AND MEDICAL ONCOLOGY CONSULTATION DATE OF CONSULTATION: 08/23/2019 REFERRING PHYSICIAN: Mary Peng MD INDICATION FOR CONSULTATION: Evaluation of B-cell lymphoma. IDENTIFICATION AND CHIEF COMPLAINT: Joe Daugherty is a very pleasant 79-year-old gentleman with a history of follicular B cell lymphoma, grade 2, recurrent, seen at the request of Mary Peng MD to evaluate management of recurrent lymphoma. The patient reports "I've have had back pain, but it is better now with the pain medicines I have been getting in the hospital. I'm just very sleepy and weak." HISTORY OF PRESENT ILLNESS: Joe Daugherty is a 79-year-old gentleman with a history of present illness that dates to January 2001, when he was found to have retroperitoneal lymphadenopathy during laparotomy performed for lysis of adhesions, by report. The histopathologic report from that initial biopsy is not immediately available for review at this time, but reportedly demonstrated follicular B cell lymphoma, histologic grade 2. However, the patient and his state that he was asymptomatic, and was managed expectantly without treatment intervention, until May 2017, when he developed abdominal pain. Imaging studies showed progressive lymphadenopathy, and he underwent laparotomy in June 2017, apparently with findings of persisting follicular lymphoma, grade 2. He was then treated in [place], where he was residing, using Rituximab and Bendamustine ("BR") for six cycles. He reports he tolerated that therapy well, with no adverse impact on quality of life. Following six cycles of BR, he was placed on maintenance Rituximab, and received one dose every 2 months until late January of 2018. In December of 2018, the patient's disease progressed further, and he was symptomatic from intra-abdominal disease, and was treated using involved field radiotherapy. This was complicated by profound fatigue, as well as gastrointestinal symptoms. By late 2018, however, he had worsening abdominal pain, and progression of disease by imaging studies by February 2019. He was then treated using the CHOP regimen together with Obinutuzumab (trade name Gazyva) beginning on March 13, 2019. He received six cycles of that regimen, the first cycle complicated by neutropenia and hospitalization. The patient completed six cycles of Obinutuzumab with CHOP, and was scheduled for PET/CT scan for restaging, to be performed in [place] earlier this month. However, the patient and his returned to [facility] in late July, to be with their children and grandchildren, who reside locally. On August 14, 2019 he presented to the emergency department at [facility] with chief complaint of generalized weakness of several days' duration. This was accompanied by cough and dyspnea. While in the emergency department, a viral respiratory panel documented coronavirus infection, and the patient was noted to be in atrial flutter. He was hospitalized, and stabilized, and then discharged on August 15, 2019. However, generalized fatigue persisted, along with worsening cough and dyspnea, and he returned to the emergency department on August 16, 2019, at which time he was admitted on this occasion. The patient had been placed apixaban at the time of initial admission to [facility]. During the present admission, he was noted to have had pancytopenia on presentation, with white blood count of 1400 per microliter on August 16, 2019. At that time, hemoglobin was 8.9 grams per dL, hematocrit 27.8%, and platelet count 88,000 per microliter. During the course of this admission, he had been febrile and tachycardiac. Temperature was 101 degrees on August 20, 2019, as the maximum temperature through this admission to date; he has since defervesced. His oropharyngeal respiratory viral panel from August 14, 2019 reported coronavirus [id number] and [id number]. Blood cultures have all been without growth to date. At present, Mr. Daugherty reports feeling profoundly fatigued but states that back and abdominal pain are well-controlled at present. He continues to feel weak although he states that his cough has resolved. He also notes he has had poor appetite and lack of taste since receiving chemotherapy. His overall Karnofsky performance status is estimated at 50% at this time. ALLERGIES: The patient reports allergy to shrimp, and intolerance of Lisinopril. CURRENT MEDICATIONS: - Megace 625 mg p.o. q. day (discontinued) - doxycycline 100 mg p.o. b.i.d. - apixaban 5 mg p.o. b.i.d. - ferrous sulfate 325 mg p.o. q. day The patient previously received cefepime earlier in his hospital course. Prior to this admission, he was receiving prednisone 20 mg p.o. daily p.r.n. pain and tramadol 50 mg p.o. q. 6 hours p.r.n. pain as well as metformin 500 mg extended release b.i.d. PAST MEDICAL HISTORY: Mr. Daugherty has a past history significant for essential hypertension in the past as well as non-insulin dependent diabetes mellitus. There is history of exploratory laparotomy in 2000 for bowel obstruction with lysis of adhesions, at which time his follicular lymphoma was initially diagnosed. He underwent repeat laparotomy in 2018 with biopsy as detailed above. A MediPort was placed into 2019. The patient has undergone bowel resection for obstruction. There is history of atrial flutter diagnosed in 2019 as detailed above. The patient has had pancytopenia in the past as noted and has been exposed to anthracycline antineoplastic therapy. SOCIAL HISTORY: Mr. Daugherty is . 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 Tobacco: The patient does not currently use tobacco although he has in the past. Alcohol: The patient does not use alcohol. Illicit drugs: The patient has never used illicit drugs. The patient's is his surrogate medical decision-maker. The patient has requested resuscitation status of "DO NOT RESUSCITATE." FAMILY HISTORY: The patient's father at the age of 96 with a history of prostate cancer metastatic to bone. The patient's mother at the age of 88 from infectious disease. REVIEW OF SYSTEMS: Neurologic: The patient reports generalized weakness. No history of seizure. No tremor. Respiratory: The patient had cough and dyspnea on admission, attributed to coronavirus infection. This has improved. The patient reports no chest pain at present. No hemoptysis. Cardiac: History of exposure to cardiotoxic anthracycline chemotherapy. The patient does report exertional dyspnea at this time and reports prior episodic palpitations. No leg edema. No orthopnea. No paroxysmal nocturnal dyspnea. Gastrointestinal: The patient reports anorexia and loss of sense of taste. No recent nausea, vomiting or diarrhea. He does report abdominal pain which has been controlled with analgesics at this time. Musculoskeletal: The patient reports back pain, as noted above non-radiating primarily in the lumbar region. No recent fractures. No joint effusions. No bone pain. Genitourinary: No dysuria or hematuria. No urinary hesitancy. Constitutional: The patient reports profound fatigue, malaise and generalized weakness. Fevers previously present earlier this admission have resolved. The remainder of the review of systems was obtained and was negative. PHYSICAL EXAMINATION: The patient is a thin, well-developed, well-nourished gentleman awake, alert and fully oriented, friendly and cooperative, in no distress acutely but ill in appearance. Temperature 98.4 degrees Fahrenheit, pulse 80, respirations 15, blood pressure 115/66, oxygen saturation 92% on room air. Skin: Full turgor, anicteric and without rash. HEENT: Examination: Normocephalic, atraumatic. Pupils equal, round, reactive and accommodate. Extraocular muscles intact. Sclerae anicteric. Oropharynx without lesions. Good dentition. Neck: Supple without thyromegaly. Lymphatics: No pathologic lymphadenopathy noted in the cervical, supraclavicular, axillary nor inguinal regions. Lungs: Clear to auscultation in the upper valentin with basilar rales on the left. No wheezing appreciated. Cardiac Exam: Regular rhythm, point of maximal impulse nondisplaced. S1, S2, without gallop, rub or murmur noted. Full pulses. Abdomen: Active bowel sounds, soft, nontender without guarding or rebound elicited. The liver percusses to 12 cm. The spleen percusses to 8 cm, and there is no appreciable organomegaly. Rectal Examination: Deferred. Extremities: Without clubbing, cyanosis or edema. Neurologic Exam: Mental status intact. Cranial nerves intact. Motor and sensory grossly intact. DIAGNOSTIC DATA: CT scan dated August 18, 2019 reports a lobular mass in the central mesentery below the level of the pancreas measuring 5.7 cm x 7.4 cm x 4.6 cm. The mask contains mixed cystic and solid components with foci of calcifications. Note is also made of mild prostatic hyperplasia. There is also mild to moderate central spinal stenosis at L2-L3 with moderate to severe central spinal stenosis L3-L4 and L4-L5. Diverticulosis is also noted. Complete blood count August 23, 2019 includes white blood count 8600 per microliter, hemoglobin 10.9 grams per decaliter, hematocrit 33.7%, platelet count 147,000 per microliter. BUN 21, creatinine 1.03 mg per decaliter, calcium 10.1 mg per decaliter. C-reactive protein August 22, 2027 markedly elevated at 12.7. Quantitative immunoglobulins August 23, 2019 include IgG 345 mg per decaliter, IgA 58.1 mg per decaliter, IgM 16.4 mg per decaliter. IMPRESSION: 1. Follicular B cell lymphoma. The patient has follicular B cell lymphoma with a prominent focus of disease in the mesentery. This has been previously irradiated, by history, and has failed both first and second line therapy. However, additional treatment options exist for the patient within standard of care, in addition to investigational therapy. The patient has not been treated using lenalidomide, an oral agent with relatively moderate toxicity; the primary concern in regard to lenalidomide is increased risk of venous thromboembolic disease for which he is already prophylaxed by use of apixaban. The other primary toxicity of lenalidomide is myelosuppression, as well as peripheral neuropathy. A second standard of care treatment option would be a phosphatidyl inositol triphosphate kinase inhibitor, such as copanlisib, duvelisib, or idilalisib. Any of these agents would be entirely reasonable, with generally acceptable toxicities, and a mechanism of action entirely different from any therapy the patient has received previously. In addition, the radioimmunoconjugate Zevalin could be considered, although this is cumbersome to administer, and would need to be administered at a large tertiary care center such as the [facility]. These options were discussed with the patient and his , and they were receptive to traveling to [place] for evaluation once he has been stabilized. 2. Pancytopenia. The patient presented with pancytopenia in the setting of documented coronavirus infection. It is likely that, due to immunocompromise, marrow suppression ensued from viral infection. The patient's blood counts have now improved, and it appears likely that the only infectious agent was coronavirus. However for completeness, it would be reasonable to obtain blood specimen for polymerase chain reaction nucleic acid amplification, to test for viremia of cytomegalic virus, as well for Emilie-Doherty virus. If either of these viral infections were identified, these would be an actionable, as specific therapy is available for both of these. 3. The patient is immunocompromised, with documented hypogammaglobulinemia as seen in a measurement of quantitative immunoglobulins from August 23, 2019. The medical literature documents that it is cost effective to administer intravenous immunoglobulin in the setting of aquired hypogammaglobulinemia in patients with lymphoproliferative disorders who have had an infectious episode requiring hospitalization. This has recently been reviewed in detail by Carmencita and colleagues in the journal [employer]iers in Immunology from May 2014. Consequently, a replacement dose of IVIG 400 mg per kilogram body weight is recommended, with repeat dosing every 3-6 weeks as needed, depending upon IgG levels. It is generally desirable in such patients to maintain an IgG level in the range of at least to 500-600 mg per decaliter. 3. Pain. The patient reports he has had significant pain in the recent past associated with his mesenteric mass. It is possible that a splanchnic nerve block may ameliorate the pain and reduce the need for sedating opioid analgesics. To that end, it is suggested that interventional radiology be contacted to review the patient's imaging studies and assess whether not he may benefit from a nerve block. RECOMMENDATIONS: As detailed above, it is recommended the patient receive intravenous immunoglobulin 400 mg per kilogram body weight, with repeat doses at intervals of 3-6 weeks in order to maintain an IgG level greater than 500 mg per decaliter. It is recommended viral load studies be obtained for CMV and EBV, and that these be treated appropriately if present. It is further recommended that interventional radiology be contacted to assess the patient for possible splanchnic nerve block in order to ameliorate his pain, and thus potentially reduce the sedating effects of oral narcotics. Finally, the patient was encouraged to consider additional systemic antineoplastic therapy, either conventional therapy such as lenalidomide, or a phosphatidylinositol triphosphate kinase inhibitor, or possibly treatment with the radioimmunoconjugate Zevalin. Alternatively, the patient could be evaluated at the [facility] or [facility] for enrollment into a clinical trial, provided his performance status was adequate. Additional management recommendations will be forthcoming based on the patient's clinical status as it evolves. The patient is welcome to followup with medical oncology at the [facility] following discharge.
[2019-08-24] MEDS: SODIUM CHLORIDE 0.9% INJ 10 ML SYR IV PRN (05:20)
[2019-08-24 05:45] LABS: HEMATOCRIT 33.2 % (42.0-52.0); HEMOGLOBIN 10.7 g/dl (13.5-17.5); MEAN CORPUSCULAR HEMOGLOBIN 28.5 pg (27.0-33.0); MEAN CORPUSCULAR HGB CONC 32.2 g/dl (32.0-36.5); MEAN CORPUSCULAR VOLUME 88.3 fl (80.0-96.0); PLATELET COUNT, AUTOMATED 138 10^3/uL (150-450); RED BLOOD COUNT 3.76 10^6/uL (4.30-6.10); WHITE BLOOD COUNT 7.5 10^3/uL (4.0-10.0)
[2019-08-24 06:00] VITALS: BP 111/55
[2019-08-24 06:07] LABS: BLOOD UREA NITROGEN 21 MG/DL (7-18); CALCIUM LEVEL 11.2 MG/DL (8.8-10.2); CARBON DIOXIDE LEVEL 33 MEQ/L (21-32); CHLORIDE LEVEL 96 MEQ/L (98-107); CREATININE FOR GFR 1.07 MG/DL (0.70-1.30); GLOMERULAR FILTRATION RATE > 60.0 (>42); GLUCOSE, FASTING 256 MG/DL (70-100); POTASSIUM SERUM 4.7 MEQ/L (3.5-5.1); SODIUM LEVEL 133 MEQ/L (136-145)
[2019-08-24 06:19] LABS: LYMPHOCYTES 5 % (16-44); METAMYELOCYTES 1 % (0-0); MONOCYTES 2 % (0-5); MYELOCYTES 6 % (0-0); NEUTROPHILS 71 % (28-66)
[2019-08-24 06:20] LABS: DOHLE BODIES 1+; PLATELET ESTIMATE DECREASED (NORMAL)
[2019-08-24 06:21] LABS: ANISOCYTOSIS 1+; POIKILOCYTOSIS 1+
[2019-08-24] MEDS ORDERED: IMMUNE GLOBULIN 10% 0 GM in IV 1 EA IV SCH (08:30)
[2019-08-24 10:00] VITALS: BP 118/68
[2019-08-24] MEDS ORDERED: IMMUNE GLOBULIN 10% 20 GM in IV 1 EA IV ONE (10:00)
[2019-08-24] MEDS ORDERED: IMMUNE GLOBULIN 10% 10 GM in IV 1 EA IV ONE (10:00)
[2019-08-24] MEDS: APIXABAN 5 MG TAB (ELIQUIS) PO SCH ×2 (10:20→20:26)
[2019-08-24] MEDS: FERROUS SULFATE 325MG TAB PO SCH (10:21)
[2019-08-24] MEDS: SENOKOT S TAB PO SCH ×2 (10:21→20:26)
[2019-08-24] MEDS: BISACODYL 5 MG TAB PO SCH (10:22)
[2019-08-24] MEDS: ACETAMINOPHEN TAB 650MG DOSE (2X325MG) PO SCH ×4 (10:22→20:26)
[2019-08-24] MEDS: DOXYCYCLINE HYCLATE 100 MG TAB PO SCH ×2 (10:22→20:26)
[2019-08-24] MEDS: SODIUM CHLORIDE 0.9% INJ 10 ML SYR IV SCH (10:25)
[2019-08-24] MEDS: POLYSPORIN TOPICAL OINTMENT 15GM TOP SCH ×3 (10:26→20:26)
--- NOTE | 2019-08-24 13:42 | IPN ---
MEDICAL ONCOLOGY PROGRESS NOTE DATE OF ENCOUNTER: 08/24/2019 INTERVAL HISTORY: Joe Daugherty is a 79-year-old gentleman seen in followup to initial hematology and medical oncology consultation of August 23, 2019. The patient has recurrent and refractory B-cell lymphoma, previously treated using bendamustine and rituximab, with subsequent therapy that included involved field radiation to the abdomen, and most recently obinutuzumab with CHOP. The patient was admitted on this occasion with cough and fever and was found to have coronavirus infection. This was complicated by pancytopenia, however neutropenia and thrombocytopenia have improved significantly over the course of the hospital stay. The patient reports good pain control at this time, with pain in the range of 2/10 in intensity focused in the abdomen and back. He reports that he was up walking in the hallway earlier today and overall his strength is improved. He has been afebrile, and his spirits are also clearly improved. The patient's son and daughter are present at the time of the encounter, and the patient and his family request referral to the [facility] at the [facility] for a second opinion regarding management options and possible investigational therapy. ALLERGIES: The patient reports allergy to SHRIMP and is intolerant of LISINOPRIL. CURRENT MEDICATIONS: - intravenous immunoglobulin ordered for August 24, 2019 - acetaminophen 650 mg p.o. q.i.d. p.r.n. - oxycodone 5 mg p.o. q.4 hours p.r.n. - doxycycline 100 mg p.o. b.i.d. - Senna 2 tablets p.o. b.i.d. - apixaban 5 mg p.o. b.i.d. - ferrous sulfate 325 mg p.o. q. day PAST MEDICAL HISTORY, SOCIAL HISTORY, AND FAMILY HISTORY: The patient's past medical, social and family history are as documented in initial consultation of August 23, 2019. REVIEW OF SYSTEMS: Review of systems is positive for generalized fatigue and malaise. Exertional dyspnea persists but is somewhat improved. The patient has abdominal and low back discomfort as well as constipation. The review of systems was otherwise negative. PHYSICAL EXAMINATION: The patient is a thin gentleman awake, alert and fully oriented, friendly and cooperative, in no distress at this time. Temperature 97.2, pulse 101, respirations 18, blood pressure 111/55, oxygen saturation 91% on room air. Skin: Full turgor, anicteric. HEENT Examination: Normocephalic, atraumatic. Pupils equal, round, reactive to light and accommodate. Extraocular muscles intact. Sclerae anicteric. Oropharynx without lesions. Neck: Supple without appreciable thyromegaly. Lymphatics: No pathologic lymphadenopathy appreciated in the cervical, supraclavicular, axillary or inguinal regions. Lungs: Bilateral breath sounds audible without wheezes; occasional rhonchi noted bilaterally occasionally irregular. Point of maximal impulse nondisplaced. S1, S2, without appreciable gallop, rub or murmur noted. Abdomen: Active bowel sounds, soft, nontender at this time without guarding nor rebound tenderness. No appreciable organomegaly and no mass appreciated on exam. Rectal Examination: Deferred. Extremities: Without clubbing, cyanosis or edema. Neurologic Exam: Mental status intact. Cranial nerves intact. Motor and sensory grossly intact. LABORATORY DATA: Laboratory studies dated August 24, 2019 include white blood count 7500 per microliter, hemoglobin 10.7 grams per decaliter, hematocrit 33.2%, platelet count 138,000. BUN 21, creatinine 1.07 mg per decaliter. Calcium elevated at 11.2 grams per decaliter. IMPRESSION: 1. Follicular B cell lymphoma. As noted previously, the patient has follicular B cell lymphoma with a prominent focus of disease in the mesentery as demonstrated on recent CT scan. The patient's disease has been refractory to CHOP chemotherapy with obinutuzumab. As noted in the initial consultation, there are additional treatment options available to him. The patient and his family expressed a desire to be evaluated at the [facility] and this is entirely appropriate. [facility] will be contacted by telephone on August 25, 2019 in an attempt to schedule an outpatient evaluation as soon as possible. 2. Pancytopenia. The patient has pancytopenia that has now resolved. As noted previously, this was likely to have been due to viral suppression of the marrow. 3. Immunocompromise. The patient has hypogammaglobulinemia and replacement dose intravenous immunoglobulin has been ordered. The patient will require monitoring for an acute hypersensitivity reaction, as patients may be allergic to other donors serum proteins. 4. Pain. The patient's pain appears to be well-controlled at this time. Nonetheless, it may be helpful for the patient to be evaluated for splenic nerve block to ameliorate pain and reduce the need for sedating opioid analgesics. 4. Hypercalcemia. The patient is reported to have elevated blood calcium level at this time. This should be repeated and if the calcium remains persistently elevated, then Aredia 90 mg over 2 hours would be recommended or alternatively Zometa 4 mg over 1 hour with repeat monitoring of blood calcium level subsequently. RECOMMENDATIONS: It is recommended that the patient proceed with replacement dose intravenous immunoglobulin as scheduled. It is recommended that consideration be given to evaluation of the patient for a splenic nerve block. It is recommended that blood calcium level be repeated and if persistently elevated then bisphosphonate therapy be administered as noted above. [facility] will be contacted on August 25, 2019 to facilitate evaluation by the hematologic malignancy's group at the [facility].
[2019-08-24 14:00] VITALS: BP 118/64
[2019-08-24 15:30] VITALS: BP 127/65
[2019-08-24 18:00] VITALS: BP 112/68
--- NOTE | 2019-08-24 19:22 | IPN ---
DATE: 08/24/2019 Yesterday, patient was obtunded, received a dose of Narcan, now back to his baseline mentation, according to the , only received Tylenol overnight with the pain being well controlled. After meeting with Dr. Ca yesterday, patient was agreeable to immunoglobulin transfusion due to low levels of IgG, IgA, and IgM with history of lymphoma. He recommended starting care over at [facility] in [place] for his lymphoma if he is not returning back to [place]. Patient's appetite is the same, still diminished. Energy level is slightly improved but still requiring assistance to walk around. Temperature 98.4, pulse 95, respiratory rate 16, blood pressure 118/68, 93% on room air. Generally: Awake, alert, oriented times three, answering questions, no respiratory distress, able to answer questions. He is much more awake and alert and not lethargic and appropriate. No jugular venous distention (JVD), no thyromegaly, no cervical lymphadenopathy. Moist mucous membranes. Lungs are clear to auscultation. No wheezing, rales, or rhonchi. Heart: S1, S2, sinus rhythm. Abdomen is soft, slightly tender in the epigastric region. No rebound, no guarding. Positive bowel sounds. Extremities: No edema. Anterior chest has a right central venous catheter. Laboratory data, microbiology, and imaging studies have been reviewed. ASSESSMENT AND PLAN: This is a 79-year-old male with follicular B-cell lymphoma in the mesentery, failed both first and second line chemotherapy, now undergoing investigational therapy but has not been treated with linelidomide. Patient received chemotherapy 07/14/2019 from his oncologist in [place], has since moved to the [facility] to be with family permamently. He presented to the emergency room with a neutropenic fever and pancytopenia secondary to chemotherapy. Patient was found to have Coronavirus. Acute issues are as follows: 1. Neutropenic fever, resolved. 2. Coronavirus upper respiratory infection. Supportive care. Patient completed 5 days of IV cefepime. Currently on doxycycline to complete a 10 day course. 3. Pneumonia secondary to Coronavirus. Currently improving. No white count, no fever. Patient has completed 5 days of cefepime and currently on a 10 day course of doxycycline. 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 Supplemental nutrition. 5. Lymphoma. Patient will decide if he wants to go to [facility] as outpatient for clinical trials as clinical trials will not be available at the [facility]. DISPOSITION: Awaiting physical therapy (PT) clearance. We will continue with intravenous immunoglobulin (IVIG) times one today.
[2019-08-24 22:00] VITALS: BP 118/66
[2019-08-25] MEDS: SODIUM CHLORIDE 0.9% INJ 10 ML SYR IV PRN ×2 (05:58→14:37)
[2019-08-25 06:00] VITALS: BP 162/69
[2019-08-25 06:22] LABS: HEMATOCRIT 32.5 % (42.0-52.0); HEMOGLOBIN 10.5 g/dl (13.5-17.5); MEAN CORPUSCULAR HEMOGLOBIN 28.7 pg (27.0-33.0); MEAN CORPUSCULAR HGB CONC 32.3 g/dl (32.0-36.5); MEAN CORPUSCULAR VOLUME 88.8 fl (80.0-96.0); PLATELET COUNT, AUTOMATED 138 10^3/uL (150-450); RED BLOOD COUNT 3.66 10^6/uL (4.30-6.10); WHITE BLOOD COUNT 6.7 10^3/uL (4.0-10.0)
[2019-08-25 06:54] LABS: EOSINOPHILS 2 % (0-3); LYMPHOCYTES 1 % (16-44); METAMYELOCYTES 7 % (0-0); MONOCYTES 1 % (0-5); NEUTROPHILS 58 % (28-66)
[2019-08-25 06:55] LABS: PLATELET ESTIMATE NORMAL (NORMAL)
[2019-08-25 07:20] LABS: BLOOD UREA NITROGEN 24 MG/DL (7-18); CALCIUM LEVEL 11.4 MG/DL (8.8-10.2); CARBON DIOXIDE LEVEL 28 MEQ/L (21-32); CHLORIDE LEVEL 98 MEQ/L (98-107); CREATININE FOR GFR 1.09 MG/DL (0.70-1.30); GLOMERULAR FILTRATION RATE > 60.0 (>42); GLUCOSE, FASTING 235 MG/DL (70-100); POTASSIUM SERUM 4.5 MEQ/L (3.5-5.1); SODIUM LEVEL 133 MEQ/L (136-145)
[2019-08-25] MEDS ORDERED: BISAC5TA PO (07:25)
[2019-08-25] MEDS ORDERED: ACET1TAB55 PO (07:25)
[2019-08-25] MEDS ORDERED: DOXY100T PO (07:25)
[2019-08-25] MEDS ORDERED: OXYC-517 PO (07:25)
[2019-08-25] MEDS ORDERED: SENN-52 PO (07:25)
[2019-08-25] MEDS: APIXABAN 5 MG TAB (ELIQUIS) PO SCH (09:24)
[2019-08-25] MEDS: FERROUS SULFATE 325MG TAB PO SCH (09:24)
[2019-08-25] MEDS: SENOKOT S TAB PO SCH (09:24)
[2019-08-25] MEDS: BISACODYL 5 MG TAB PO SCH (09:25)
[2019-08-25] MEDS: DOXYCYCLINE HYCLATE 100 MG TAB PO SCH (09:25)
[2019-08-25] MEDS: ACETAMINOPHEN TAB 650MG DOSE (2X325MG) PO SCH ×2 (09:26→12:44)
[2019-08-25] MEDS: SODIUM CHLORIDE 0.9% INJ 10 ML SYR IV SCH (09:26)
[2019-08-25] MEDS: POLYSPORIN TOPICAL OINTMENT 15GM TOP SCH (09:26)
[2019-08-25 10:00] VITALS: BP 144/85
--- NOTE | 2019-08-25 13:18 | DS.PDOC ---
Discharge Summary General Date of Admission Aug 16, 2019 at 15:12 Date of Discharge 08/25/19 Discharge Summary PATIENT REFUSED INTERVENTIONAL RADIOLOGY CONSULT FOR CELIAC AXIS BLOCK. DISCHARGE DIAGNOSES: Lymphoma, refractory Neutropenic Fever Chemotherapy-induced Pancytopenia Coronavirus pneumonia Cancer Cachexia Severe protein calorie malnutrition Failure to thrive Acute encephalopathy due to oxycontin Adverse effect from oxycontin given at the correct dose and frequency, requiring narcan DISCHARGE MEDICATIONS: PLS SEE BELOW CONSULTANTS: INFECTIOUS DISEASE DR. BURTON MEDICAL ONCOLOGIST DR. 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 Patient received chemotherapy 07/14/2019 from his oncologist in [place], has since moved to the [facility] to be with family permamently. He presented to the emergency room with a neutropenic fever and pancytopenia secondary to chemotherapy. Patient was found to have Coronavirus. Acute issues are as follows: Neutropenic fever, resolved.s/p neupogen, empiric iv cefepime x 5days, and 10 day course of doxycycline. due to chemotherapy. Coronavirus upper respiratory infection. Supportive care. Patient completed 5 days of IV cefepime. Currently on doxycycline to complete a 10 day course. Pneumonia secondary to Coronavirus. Currently improving. No white count, no fever. Patient has completed 5 days of cefepime and currently on a 10 day course of doxycycline. Cancer cachexia/severe protein calorie malnutrition/ failure to thrive Body mass index (BMI) of 21. Supplemental nutrition. Lymphoma, refractory to chemo. s/p iv ig infusion. outpt referral to [facility] for experimental trials. Acute encephalopathy due to oxycontin, resolved after narcan. DISCHARGE PHYSICAL EXAMINATION: VITALS: PLS SEE BELOW Generally: Awake, alert, oriented times three, answering questions, no respiratory distress, able to answer questions. He is much more awake and alert and not lethargic and appropriate. No jugular venous distention (JVD), no thyromegaly, no cervical lymphadenopathy. Moist mucous membranes. Lungs are clear to auscultation. No wheezing, rales, or rhonchi. Heart: S1, S2, sinus rhythm. Abdomen is soft, slightly tender in the epigastric region. No rebound, no guarding. Positive bowel sounds. Extremities: No edema. Anterior chest has a right central venous catheter. DISCHARGE Laboratory data, microbiology: pls see below IMAGING STUDIES: PROCEDURE INFORMATION: Exam: CT Abdomen And Pelvis With Contrast Exam date and time: 08/18/2019 5:29 PM Age: 79 years old Clinical indication: Fever; Additional info: Neutropenic fever TECHNIQUE: Imaging protocol: Computed tomography of the abdomen and pelvis with intravenous contrast. Radiation optimization: All CT scans at this facility use at least one of these dose optimization techniques: automated exposure control; mA and/or kV adjustment per patient size (includes targeted exams where dose is matched to clinical indication); or iterative reconstruction. Contrast material: ISOVUE 370; Contrast volume: 100 ml; Contrast route: IV; COMPARISON: No relevant prior studies available. FINDINGS: Liver: There is a diffuse decrease in hepatic parenchymal density, consistent with steatosis. Gallbladder and bile ducts: There is mild thickening of the gallbladder wall without evidence of calculi or pericholecystic fluid. Ultrasound correlation suggested for further evaluation if clinically desired. Pancreas: There is a lobular mass in the central mesentery below the level of the pancreas measuring 5.7 x 7.4 x 4.6 cm. The mass contains mixed cystic and solid components with foci of calcification. Surgical clips are demonstrated within the lesion as well. Differential diagnosis includes a carcinoid tumor, desmoplastic tumor and lymphoma. Spleen: Normal. No splenomegaly. Adrenals: Normal. No mass. Kidneys and ureters: Normal. No hydronephrosis. Stomach and bowel: Moderate diverticulosis is present in the distal colon. Minimal pericolonic inflammation demonstrated at the junction of the sigmoid and left colon, findings which may reflect changes related to prior bouts of diverticulitis or mild acute/subacute diverticulitis in the appropriate clinical setting. Appendix: No evidence of appendicitis. Intraperitoneal space: Unremarkable. No free air. No significant fluid collection. Vasculature: The aorta demonstrates mild atherosclerotic calcification. Lymph nodes: See Pancreas Finding. Bladder: Unremarkable as visualized. Reproductive: The prostate gland demonstrates mild hyperplasia. Bones/joints: The spine demonstrates moderate degenerative changes. There is a [id number] central spinal stenosis at L2-L3, moderate to severe central spinal stenosis at L3-L4 and L4-L5. There is a grade 2 anterior spondylolisthesis of L5 on S1 secondary to bilateral L5 spondylolysis. Soft tissues: PROCEDURE INFORMATION: Exam: CT Chest With Contrast Exam date and time: 08/18/2019 5:29 PM Age: 79 years old Clinical indication: Fever; Additional info: Neutropenic fever TECHNIQUE: Imaging protocol: Computed tomography of the chest with intravenous contrast. Radiation optimization: All CT scans at this facility use at least one of these dose optimization techniques: automated exposure control; mA and/or kV adjustment per patient size (includes targeted exams where dose is matched to clinical indication); or iterative reconstruction. Contrast material: ISOVUE 370; Contrast volume: 100 ml; Contrast route: IV; COMPARISON: CR PORTABLE CHEST X-RAY 08/16/2019 11:58 AM FINDINGS: Lungs: There is a small patchy infiltrate in the posterior segment of the right upper lobe abutting the major fissure. There are bibasilar infiltrates which may be atelectatic although infection is not excluded, particularly on the left where air bronchograms are demonstrated. Pleural space: Unremarkable. No pneumothorax. No pleural effusion. Heart: There is mild atherosclerotic calcification of the coronary arteries. Aorta: The aorta demonstrates mild atherosclerotic calcification. Lymph nodes: Unremarkable. No enlarged lymph nodes. Bones/joints: The spine demonstrates mild degenerative changes. Soft tissues: Unremarkable. IMPRESSION: 1. There is a small patchy infiltrate in the posterior segment of the right upper lobe abutting the major fissure. 2. There are bibasilar infiltrates which may be atelectatic although infection is not excluded, particularly on the left where air bronchograms are demonstrated. 3. Coronary artery disease. Electronically signed by: Elvis Armenta On 08/18/2019 18:02:[address] BRAIN WITHOUT IV CONTRAST: CT brain performed without IV contrast. Coronal reconstruction images are performed. There is moderate atrophy. There is no midline shift or mass effect. Minor periventricular small vessel ischemic changes are present. There is no intracranial hemorrhage or extra-axial fluid collection. There are minor vascular calcifications in the carotid siphons. There is mild mucosal thickening in the posterior left maxillary sinus and posterior right sphenoid sinus. IMPRESSION: Atrophy. No acute intracranial finding. Mild mucosal thickening left maxillary and right sphenoid sinuses. Electronically Signed by Brain Barriga MD 08/16/2019 06:49 P TIME SPENT ON DISCHARGE: 30 MINUTES. Vital Signs/I&Os Vital Signs Date Time Temp Pulse Resp B/P (MAP) Pulse Ox O2 Delivery O2 Flow Rate FiO2 08/25/19 10:00 96.1 116 20 144/85 (104) 91 Room Air I&O- Last 24 Hours up to 6 AM 08/25/19 06:00 Intake Total 1500 ml Output Total 300 ml Balance 1200 ml Laboratory Data Labs 24H Laboratory Tests 2 08/25/19 06:04: Immature Granulocyte % (Auto) , Neutrophils (%) (Auto) , Lymphocytes # (Auto) , Nucleated Red Blood Cells % (auto) 0.0, Neutrophils 58, Band Neutrophils 31H, Lymphocytes (Manual) 1L, Monocytes (Manual) 1, Eosinophils (Manual) 2, Metamyelocytes 7H, Red Blood Cell Morphology NORMAL, Platelet Estimate NORMAL, Anion Gap 7L, Glomerular Filtration Rate > 60.0, Calcium Level 11.4H CBC/BMP Laboratory Tests 08/25/19 06:04 Microbiology Microbiology 08/19/19 Blood Culture - Final, Complete NO GROWTH AFTER 5 DAYS 08/18/19 Blood Culture - Final, Complete NO GROWTH AFTER 5 DAYS 08/16/19 Blood Culture - Final, Complete NO GROWTH AFTER 5 DAYS 08/16/19 Blood Culture - Final, Complete NO GROWTH AFTER 5 DAYS Discharge Medications Scheduled Acetaminophen (Acetaminophen) 325 Mg Tablet, 650 MG PO QID Apixaban (Eliquis) 5 Mg Tablet, 5 MG PO BID, (Reported) Bisacodyl (Bisacodyl) 5 Mg Tablet.dr, 10 MG PO DAILY Doxycycline Hyclate (Doxycycline Hyclate) 100 Mg Tablet, 100 MG PO BID Ferrous Sulfate (Iron) 325 Mg Tablet, 325 MG PO DAILY, (Reported) Hyalur AC/Chond Sul/Colg II/Aa (Hyaluronic Acid 40 mg Capsule) 1 Each Capsule, 3 CAP PO DAILY, (Reported) Metformin HCl (Metformin HCl ER) 500 Mg Tab.er.24h, 500 MG PO BID, (Reported) Sennosides/Docusate Sodium (Senna Plus Tablet) 1 Each Tablet, 2 TAB PO BID [Super Beta Prostate] , 1 CAP PO BID, (Reported) Scheduled PRN Acetaminophen (Acetaminophen) 500 Mg Tablet, 1,000 MG PO Q6H PRN for PAIN, (Reported) Docusate Sodium (Stool Softener) 100 Mg Capsule, 200 MG PO BID PRN for CONSTIPATION, (Reported) Oxycodone HCl (Oxycodone HCl) 5 Mg Tablet, 5 MG PO Q4HP PRN for PAIN Prednisone (Prednisone) 20 Mg Tablet, 20 MG PO DAILY PRN for PAIN, (Reported) Tramadol HCl (Tramadol HCl) 50 Mg Tablet, 50 MG PO Q6H PRN for PAIN, (Reported) Allergies Coded Allergies: Shrimp (Verified Adverse Reaction, Intermediate, VOMITING, 08/14/19) lisinopril (Verified Adverse Reaction, Mild, COUGH, UPSET STOMACH, 08/14) BELÉN QUINTANA MD Aug 25, 2019 13:15
[2019-08-28 14:07] LABS: CMV QUANT DNA PCR (PLASMA) Negative (Negative); CYTOMEGALOVIRUS IgM ANTIBODY <30.0 AU/mL (0.0-29.9); EBV PCR QUAL WHOLE BLD Negative (Negative); EBV VIRAL CAPSID AG IgG 26.5 U/mL (0.0-17.9); EBV VIRAL CAPSID AG IgM <36.0 U/mL (0.0-35.9)
== END 2019-08-25 14:57 | disposition home health service (06) | DRG 808 ==
LOC: M ED 11:26 → M ED INP 15:12 → ENRESERV 15:36 → M PCU 16:57 → M MSPAV 08-17 15:26
PROVIDERS: ADMIT Internal Medicine; ATTEND General Practice
PROC: 30233N1 Transfusion of Nonautologous Red Blood Cells into Peripheral Vein, Percutaneous Approach (ICD-10-PCS; principal; 2019-08-20)
DX: D61.810 Antineoplastic chemotherapy induced pancytopenia (principal); J12.89 Other viral pneumonia; G92 Toxic encephalopathy; E43 Unspecified severe protein-calorie malnutrition; I48.92 Unspecified atrial flutter; C82.13 Follicular lymphoma grade II, intra-abdominal lymph nodes; R64 Cachexia; D80.1 Nonfamilial hypogammaglobulinemia; J06.9 Acute upper respiratory infection, unspecified; E11.9 Type 2 diabetes mellitus without complications; B97.29 Other coronavirus as the cause of diseases classified elsewhere; K57.30 Diverticulosis of large intestine without perforation or abscess without bleeding; F17.200 Nicotine dependence, unspecified, uncomplicated; K59.00 Constipation, unspecified; T40.2X5A Adverse effect of other opioids, initial encounter; M48.061 Spinal stenosis, lumbar region without neurogenic claudication; E83.52 Hypercalcemia; I10 Essential (primary) hypertension; D64.81 Anemia due to antineoplastic chemotherapy; R63.0 Anorexia; Z66 Do not resuscitate; Z79.01 Long term (current) use of anticoagulants; Z79.84 Long term (current) use of oral hypoglycemic drugs; Z79.899 Other long term (current) drug therapy; Z88.8 Allergy status to other drugs, medicaments and biological substances; Z91.013 Allergy to seafood; Z90.49 Acquired absence of other specified parts of digestive tract; Z92.3 Personal history of irradiation